=== PATIENT | female | born 1965 | race Caucasian/White ===

== ENCOUNTER 2021-07-25 08:50 | Emergency (ER) | payer OTHER, SELFPAY ==
--- NOTE | ~2021-07-25 | XR_ITS ---
EXAMINATION: XR chest 2V DATE: 07/25/2021 09:59 INDICATION: Left upper chest and arm pain. Shortness of breath. TECHNIQUE: PA and lateral views of the chest were obtained. COMPARISON: None FINDINGS: The lungs are clear with no focal airspace opacities, pulmonary edema, pleural effusion or pneumothor ax. The cardiomediastinal silhouette is normal with small left paracardial fat pad. Visualized bones and soft tissues are unremarkable. IMPRESSION: 1. No acute cardiopulmonary disease. Reviewed, dictated and finalized at location A.
[2021-07-25 09:03] VITALS: BP 152/83; PULSE 64; RESP 18; TEMP 36.9; O2SAT 100
--- NOTE | 2021-07-25 09:17 | ED.EXTPRO ---
HPI - Extremity Problem General Chief complaint: Extremity Problem,Nontraumatic Stated complaint: left arm pain Time Seen by Provider: 07/25/21 09:05 Source: patient Mode of arrival: ambulatory Limitations: no limitations History of Present Illness HPI Narrative: Patient is a 56-year-old female who presents the ED with report of L upper arm and L shoulder/L upper back pain. Patient reports the pain began suddenly around 8 pm last night. She states she has had pain like this before which was attributed to stress. She states the pain is in her left upper back and travels down her left arm to approximately her elbow. She states when she lays flat the pain is worse and she has trouble breathing. No other shortness of breath otherwise or with exertion. No chest pain, nausea, vomiting, abdominal pain, fever, chills. Patient tried taking Tylenol last night with no relief. No trauma or injury. Related Data Home Medications Medication Instructions Recorded Confirmed omeprazole 40 mg PO DAILY 07/25/21 07/25/21 Allergies Allergy/AdvReac Type Severity Reaction Status Date / Time No Known Allergies Allergy Unverified 07/25/21 09:14 Review of Systems Review of Systems: CONSTITUTIONAL: Denies fever, chills. CARDIOVASCULAR: Denies chest pain. RESPIRATORY: Denies cough or dyspnea. GASTROINTESTINAL: Denies abdominal pain, nausea, vomiting, or diarrhea. SKIN: Denies rash or itching. MUSCULOSKELETAL: Reports pain to L upper arm/shoulder/upper back. NEUROLOGIC: Denies headache, numbness, or weakness. All systems reviewed & are unremarkable except as noted in HPI and below PMFSH Past Medical History Medical History (Updated 07/25/21 @ 12:32 by Daria Hicks PA-C) GERD (gastroesophageal reflux disease) Surgical History Surgical History (Updated 07/25/21 @ 09:27 by Daria Hicks PA-C) History of partial colectomy Social History Social History (Updated 07/25/21 @ 09:27 by Daria Hicks PA-C) Smoking status: Never smoker Exam Narrative: GENERAL: Tearful, well-nourished, non-toxic, in mild acute distress. HEAD: Normocephalic, atraumatic. NECK: Supple. No adenopathy, no masses. No midline spinal tenderness. RESPIRATORY: Airway patent, respirations nonlabored. Clear to auscultation bilaterally, no rales, rhonchi, wheezing. CARDIOVASCULAR: Regular rate and rhythm without murmurs, rubs, or gallops. Radial pulses 2+ and equal bilaterally. ABDOMINAL: Soft, nontender, nondistended, no hepatosplenomegaly. Normoactive BS. MUSCULOSKELETAL: Moves all extremities. Strength/ROM intact without gross deformities. TTP of L deltoid region with area of knotted muscle tension. No TTP of L upper arm. No chest wall tenderness to palpation. No pain with ROM of LUE. SKIN: Warm, dry, normal color. No rashes. NEURO: A&O X3. Speech clear. Cranial nerves II-XII grossly intact. Steady gait. No ataxic movements. PSYCHIATRIC: Appropriate mood and affect. Normal interaction. Course Vital Signs Vital signs: Vital Signs Temperature 98.5 F 07/25/21 09:03 Pulse Rate 64 07/25/21 09:03 Respiratory Rate 18 07/25/21 09:03 Blood Pressure 152/83 H 07/25/21 09:03 Pulse Oximetry 100 07/25/21 09:03 Temperature 98.5 F 07/25/21 09:03 Pulse Rate 53 L 07/25/21 12:48 Respiratory Rate 18 07/25/21 12:48 Blood Pressure 140/78 07/25/21 12:48 Pulse Oximetry 100 07/25/21 12:48 MDM - Extremity (Nontraumatic) MDM Narrative Medical decision making narrative: Patient presented to ED with left upper arm/shoulder pain. No injury or trauma to the area. Pain began suddenly last night. Initially had concern for cardiac etiology, however patient with minimal cardiac risk factors. No HTN, HLD, DM, smoking, obesity. Laboratory evaluation fairly unremarkable. No leukocytosis or anemia. No electrolyte abnormality. Good kidney function. Troponin negative X 2. EKG without acute changes. D-dimer negative. Chest x-ray negative. Patient's pa
--- NOTE | 2021-07-25 09:23 | ECG_ITS ---
Measurements Intervals [place] Rate: 60 P: 24 NM: 131 QRS: 24 QRSD: 95 T: 51 QT: 365 QTc: 365 Interpretive Statements SINUS RHYTHM NONSPECIFIC T-WAVE ABNORMALITY BORDERLINE ECG NO PREVIOUS ECG AVAILABLE FOR COMPARISON Electronically Signed On 07-25-2021 11:34:37 CDT by José Martin M.D.
[2021-07-25 09:40] LABS: Basophils Percent Auto 0.6 % (0.2-1.2); Eosinophils Absolute Auto 0.2 K/mm3 (0-0.3); Eosinophils Percent Auto 3.8 % (0-4.4); Hematocrit 40.3 % (37.0-47.0); Hemoglobin 13.8 g/dL (12.0-15.0); Immature Granulocyte Absolute 0.02 K/mm3 (0.00-0.031); Immature Granulocyte Percent A 0.4 % (0-0.5); Lymphocytes Absolute Auto 1.96 K/mm3 (0.9-3.2); Lymphocytes Percent Auto 37.2 % (18.3-44.2); Mean Corpuscular HGB Conc 34.2 g/dl (32-36); Mean Corpuscular Hemoglobin 31.2 pg (26-34); Mean Platelet Volume 9.8 fl (7.4-10.4); Monocytes Absolute Auto 0.6 K/mm3 (0.1-0.6); Monocytes Percent Auto 11.2 % (2.6-8.5); Neutrophils Absolute Auto 2.5 K/mm3 (1.3-6.7); Neutrophils Percent Auto 46.8 % (45.5-73.1); Platelet Count Result 263 k/mm3 (150-375); Red Blood Count 4.43 M/mm3 (4.2-5.4); Red Cell Distribution Width 12.3 % (11.5-14.5); White Blood Count 5.3 K/mm3 (4.5-10.0)
[2021-07-25 09:52] LABS: Alanine Aminotransferase 28 U/L (4-35); Albumin Level 4.8 g/dL (3.5-5.1); Alkaline Phosphatase 107 U/L (38-126); Anion Gap 7 mmol/L (8-16); Aspartate Amino Transferase 31 U/L (14-36); Bilirubin,Total 0.3 mg/dL (0.2-1.3); Blood Urea Nitrogen 14 mg/dL (7-17); Carbon Dioxide 28 mmol/L (22-30); Chloride 104 mmol/L (98-107); Estimated CRCL calculation 75 ml/min; Estimated Glomerular Filt Rate > 60; Glucose 108 mg/dL (65-110); Sodium 139 mmol/L (137-145)
[2021-07-25 10:02] LABS: Troponin I < 0.012 ng/mL (0.000-0.034)
[2021-07-25] MEDS: KETOROLAC 30 MG/ML VIAL (*BKC) IV PUSH (10:20)
[2021-07-25 11:35] LABS: D Dimer 0.37 ug/mL (<0.48)
[2021-07-25 12:48] VITALS: BP 140/78; PULSE 53; RESP 18; O2SAT 100
[2021-07-25 12:51] LABS: Troponin I < 0.012 ng/mL (0.000-0.034)
== END 2021-07-25 13:02 | disposition home or self-care (01) ==
PROVIDERS: Physician Assistant; Emergency Provider Emergency Medicine
DX: M62.830 Muscle spasm of back (principal); K21.9 Gastro-esophageal reflux disease without esophagitis; Z90.49 Acquired absence of other specified parts of digestive tract; R94.31 Abnormal electrocardiogram [ECG] [EKG]
CPT/HCPCS: 36415; 71046; 80053; 84484; 85025; 85380; 93005; 96365; 96375; 99284; J0131; J1885

== ENCOUNTER 2022-05-19 09:26 | Emergency (ER) | payer OTHER, SELFPAY ==
[2022-05-19 09:57] VITALS: BP 145/84; PULSE 71; RESP 16; TEMP 36.8; O2SAT 98
--- NOTE | 2022-05-19 09:59 | ED.URI ---
HPI - URI/Sore Throat General Chief Complaint: Upper Respiratory Infection Stated Complaint: cough, sinus congestion Time Seen by Provider: 05/19/22 09:59 Source: patient and RN notes reviewed Mode of arrival: ambulatory Limitations: no limitations History of Present Illness HPI Narrative: 57 female presented for complaint of sinus pressure and head congestion for about 10 days. Endorses of the past few days her cough has worsened into it ?barking cough.? Denies shortness of breath, wheezing, nausea vomiting, diarrhea, fevers or chills. She is taking Zyrtec daily, Sudafed, and Tylenol for symptoms. Denies known sick contacts. MD elicited complaint: cough Related Data Home Medications Medication Instructions Recorded Confirmed omeprazole 40 mg capsule,delayed 40 mg PO DAILY 07/25/21 05/19/22 release Allergies Allergy/AdvReac Type Severity Reaction Status Date / Time No Known Allergies Allergy Unverified 05/19/22 09:54 Review of Systems Review of Systems: CONSTITUTIONAL: Denies malaise, chills, sweats, fever EYES: Denies visual changes, redness, or discharge ENT: Reports rhinorrhea, congestion, sinus pain, denies otalgia, sore throat CARDIOVASCULAR: Denies chest pain, palpitations, edema RESPIRATORY: Reports cough, post nasal drainage. Denies dyspnea GASTROINTESTINAL: Denies abdominal pain, nausea, vomiting, diarrhea SKIN: Denies rash or itching PMFSH Past Medical History Medical History GERD (gastroesophageal reflux disease) Surgical History Surgical History History of partial colectomy Social History Social History Smoking status: Never smoker Exam Narrative: GENERAL: Mildly Ill-appearing, nontoxic EYES: PERRLA, conjunctivae clear ENT: Mucous membranes moist. TM pearly borja with dull light reflex bilaterally; no tragal tenderness. Oropharynx erythematous without lesions or exudate NECK: Supple. No lymphadenopathy CHEST: Clear to auscultation, breath sounds equal. Frequent barking nonproductive cough. No wheezing, rhonchi, rales, or stridor. No respiratory distress, speaks in full sentences. HEART: Regular rate and rhythm. No murmur heard. SKIN: Warm, dry, no rash. NEURO: Alert and oriented x3. PSYCH: Normal mood and affect Course Course Emergency Course: Patient is aware of diagnosis, understands and agrees to treatment plan. Anticipatory guidance given. Patient agrees to follow-up as directed and is aware of reasons to seek care at the emergency department. Portions of this record may have been created with voice recognition software Level of Care: Express Care Visit Vital Signs Vital signs: Vital Signs Temperature 98.2 F 05/19/22 09:57 Pulse Rate 71 05/19/22 09:57 Respiratory Rate 16 05/19/22 09:57 Blood Pressure 145/84 H 05/19/22 09:57 Pulse Oximetry 98 05/19/22 09:57 Temperature 98.2 F 05/19/22 09:57 Pulse Rate 71 05/19/22 09:57 Respiratory Rate 16 05/19/22 09:57 Blood Pressure 145/84 H 05/19/22 09:57 Pulse Oximetry 98 05/19/22 09:57 reviewed MDM - URI/Sore Throat MDM Narrative Medical decision making narrative: Advised supportive measures and signs/symptoms to go to the ER. Pt is appropriate for outpt treatment and f/u. Differential Diagnosis Differential diagnosis: Likely upper respiratory infection, sinusitis and viral infection Discharge Plan Discharge Clinical Impression: Upper respiratory infection Patient Disposition: Home, Self-Care Condition: Stable Instructions: Antibiotic Form, Upper Respiratory Infection (ED) Additional Instructions: Take medication as directed Recommend Flonase spray and Zyrtec (or Claritin/Ashley) over the counter Cough syrup may cause drowsiness; avoid driving or take it at night time. Tylenol 1000mg every 8 ho
== END 2022-05-19 10:13 | disposition home or self-care (01) ==
PROVIDERS: Emergency Provider Nurse Practitioner Family
DX: J06.9 Acute upper respiratory infection, unspecified (principal); K21.9 Gastro-esophageal reflux disease without esophagitis; Z90.49 Acquired absence of other specified parts of digestive tract
CPT/HCPCS: 99213; G0463

== ENCOUNTER 2022-07-20 14:14 | Outpatient (CLI) | payer OTHER, SELFPAY ==
[2022-07-20 17:55] LABS: Hemoglobin A1C 5.5 % (<5.7)
== END 2022-07-20 14:15 | disposition home or self-care (01) ==
LOC: ANHLAB 14:15
PROVIDERS: PCP Family Medicine; Visit Provider Nurse Practitioner Family
DX: R73.09 Other abnormal glucose (principal)
CPT/HCPCS: 36415; 83036

== ENCOUNTER 2022-08-10 09:21 | Outpatient (NON) | payer OTHER, SELFPAY | END 2022-08-10 09:22 | disposition home or self-care (01) | LOC: ANHLAB 08-11 09:23 | PROVIDERS: PCP Family Medicine; Visit Provider Internal Medicine Gastroenterology | DX: K21.9 Gastro-esophageal reflux disease without esophagitis (principal); Z90.49 Acquired absence of other specified parts of digestive tract; K63.89 Other specified diseases of intestine | CPT/HCPCS: 88305 ==

== ENCOUNTER 2022-08-10 11:52 | Day surgery (SDC) | payer OTHER, SELFPAY ==
[2022-07-21 09:49] VITALS: BMI 31.8
[2022-07-26 09:29] VITALS: BMI 32.2
--- NOTE | 2022-08-09 13:24 | PM.HPGS ---
History of Present Illness History of Present Illness Consent: Risks, benefits, and alternatives have been discussed and questions answered. Patient agrees to proceed with procedure. Chief complaint: Gerd and Aquired Absence of other specified parts Narrative: Violetta Gupta is a 57 year old female referred for investigation of chronic reflux symptoms as well as nausea and intermittent vomiting. She has been on omeprazole for several years which helps her with daytime reflux. She does however still get episodes of regurgitating at night. She denies dysphagia. She has never had EGD in the past. She is also due for colon cancer screening . Her last colonoscopy was at least 5 years ago. When she had a resection for intestinal obstruction, the etiology was never determined, as she had not had prior surgery to cause adhesions. Review of Systems Review of Systems: All systems reviewed & are unremarkable except as noted in HPI and below PMFSH Past Medical History Medical History BMI 31.0-31.9,adult GERD (gastroesophageal reflux disease) Surgical History Surgical History History of partial colectomy Family History Family History Father Heart disease Diabetes mellitus Mother Diabetes mellitus Sibling Heart disease Social History Social History Smoking status: Never smoker Second hand tobacco smoke exposure: Yes Alcohol intake: current Substance use: never Substance use type: does not use Lack of Transportation: No Lack of Food: Never True Current Housing: I Have Housing Concerned About Future Housing: No Difficulty Paying Gas/Electric Bills: No Difficulty Paying for Meds: No Currently Unemployed: No Education: Trade/Vocational Certificate Difficulty w/ Childcare or Family Care: No Living arrangements: with family Occupation/Education: occupation 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 Gender identity (if verbalized by the patient): Female Spiritual care concerns: No Meds Home Medications and Allergies Home Medications Medication Instructions Recorded Confirmed Type omeprazole 40 mg capsule,delayed 40 mg PO DAILY 07/25/21 08/10/22 History release cetirizine 10 mg capsule (Zyrtec) 10 mg PO DAILY PRN Allergic 07/18/22 08/10/22 History Symptoms Allergies Allergy/AdvReac Type Severity Reaction Status Date / Time No Known Allergies Allergy Verified 08/10/22 12:28 Exam Const: General: alert Orientation/consciousness: patient oriented x3 Resp: Auscultation: clear to auscultation bilaterally Cardio: Rhythm: regular rhythm GI: GI Palp: Yes Soft to palpation and No Tenderness to palpation present (GI) Neuro: General: patient oriented x3 Assessment and Plan Assessment and plan (1) GERD (gastroesophageal reflux disease): Code(s): K21.9 - Gastro-esophageal reflux disease without esophagitis Status: Acute Assessment and Plan: EGD with possible biopsy or dilatation or cautery. (2) Screen for colon cancer: Code(s): Z12.11 - Encounter for screening for malignant neoplasm of colon Status: Acute Assessment and Plan: Colonoscopy with possible biopsy or polypectomy or cautery or injection of substances.
--- NOTE | 2022-08-10 11:52 | P.PNAN_ITS ---
Anes - Initial Pre Proc Eval Procedure: Operation Date: 08/10/22 13:30 Proposed Procedures p Esophagogastroduodenoscopy - Micky Oneil MD s Diagnostic Colonoscopy - Micky Oneil MD Date/Time: 08/10/22 11:52 Surgeon: Micky Oneil MD Pre Op Diagnosis: Gerd and Aquired Absence of other specified parts Patient Data Age: 57 Gender: F Height: 1.68 m Weight: 90.5 kg Allergies Allergy/AdvReac Type Severity Reaction Status Date / Time No Known Allergies Allergy Verified 08/10/22 12:28 Home Medications Medication Instructions Recorded Confirmed Type omeprazole 40 mg capsule,delayed 40 mg PO DAILY 07/25/21 08/10/22 History release cetirizine 10 mg capsule (Zyrtec) 10 mg PO DAILY PRN Allergic 07/18/22 08/10/22 History Symptoms Patient hx anesthesia problems: none Family hx anesthesia problems: none Results Review: All pre-operative results and documents have been reviewed as part of the pre- operative evaluation. [facility], LAT[facility] Past Medical History Medical History BMI 31.0-31.9,adult GERD (gastroesophageal reflux disease) Surgical History Surgical History History of partial colectomy Family History Family History Father Heart disease Diabetes mellitus Mother Diabetes mellitus Sibling Heart disease Social History Social History Smoking status: Never smoker Second hand tobacco smoke exposure: Yes Alcohol intake: current Substance use: never Substance use type: does not use Lack of Transportation: No Lack of Food: Never True Current Housing: I Have Housing Concerned About Future Housing: No Difficulty Paying Gas/Electric Bills: No Difficulty Paying for Meds: No Currently Unemployed: No Education: Trade/Vocational Certificate Difficulty w/ Childcare or Family Care: No Living arrangements: with family Occupation/Education: occupation 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 Informed Consent: The patient's anesthetic plan and its attendant risks and benefits were discussed with the patient/family/POA. Questions were solicited and answers provided to the satisfaction of the patient/family/POA.
[2022-08-10 12:25] VITALS: BP 118/80; PULSE 66; RESP 20; TEMP 37.4; O2SAT 96
[2022-08-10] MEDS: LACTATED RINGERS 1,000 ML 150 ML IV CONT (12:33)
[2022-08-10 13:42] VITALS: BP 121/74; PULSE 74; RESP 16; O2SAT 100
[2022-08-10 13:52] VITALS: BP 110/75; PULSE 64; RESP 16; O2SAT 97
[2022-08-10 14:02] VITALS: BP 115/86; PULSE 60; RESP 16; O2SAT 99
--- NOTE | 2022-08-10 14:17 | SUR.PHASEII ---
PT AWAKE AND ALERT. DENIES PAIN OR NAUSEA. EATING AND DRINKING. TALKATIVE WITH MOTHER.
--- NOTE | 2022-08-22 08:33 | WPDANESPN ---
Anes - Prog Note Post-Op Date/Time: 08/22/22 08:33 Cardiovascular status: normal Respiratory status: normal Airway patency: baseline Mental status: baseline Post-Op hydration status: normal Vital Signs: Last Vital Signs Temp 37.4 C 08/10/22 12:25 Pulse 60 08/10/22 14:02 Resp 16 08/10/22 14:02 BP 115/86 08/10/22 14:02 Pulse Ox 99 08/10/22 14:02 O2 Del Method Room Air 08/10/22 14:02 Pain Score (VAS): 0 Post-procedural complaints: none Patient Feedback: Patient satisfied with anesthetic care.
== END 2022-08-10 14:25 | disposition home or self-care (01) ==
PROVIDERS: PCP Family Medicine; Visit Provider Internal Medicine Gastroenterology
PROC: 0DJ08ZZ Inspection of Upper Intestinal Tract, Via Natural or Artificial Opening Endoscopic (ICD-10-PCS; CPT 43235; principal; 2022-08-10 13:30)
PROC: 0DJD8ZZ Inspection of Lower Intestinal Tract, Via Natural or Artificial Opening Endoscopic (ICD-10-PCS; CPT 45378; 2022-08-10 13:30)
DX: K21.9 Gastro-esophageal reflux disease without esophagitis (principal)
CPT/HCPCS: 45380; 43239

== ENCOUNTER 2022-09-28 13:33 | Outpatient (CLI) | payer OTHER, SELFPAY | END 2022-09-28 13:34 | disposition home or self-care (01) | PROVIDERS: PCP Family Medicine; Visit Provider Nurse Practitioner Family | DX: M79.672 Pain in left foot (principal) | CPT/HCPCS: 73630 ==

== ENCOUNTER 2023-06-15 07:57 | Outpatient (CLI) | payer OTHER, SELFPAY ==
--- NOTE | ~2023-06-15 | XR_ITS ---
EXAMINATION: XR UGIAC w barium swallow DATE: 06/15/2023 09:05 INDICATION: Gastroesophageal reflux disease without esophagitis TECHNIQUE: The patient drank thick barium, gas-producing crystals, and thin barium. Fluoroscopic spot radiographs of the hypopharynx, esophagus, stomach and proximal small bowel were obtained. Fluorosco py exposure time was 2.2 minutes. A total of 1393 fluoroscopic images were recorded. Total DAP was 14 .025 mGycm^2. COMPARISON: None. FINDINGS: The pharynx is symmetric and without evidence of mass lesion or mucosal irregularity. The esophagus i s normal without mass or stricture. Esophageal motility is normal. There is no hiatal hernia. There w as no gastroesophageal reflux with provocative maneuvers. The stomach and proximal small bowel are no rmal. IMPRESSION: 1. Normal esophagram and upper GI study. Reviewed, dictated and finalized at location A. HIC ARTS TECHNICIAN
== END 2023-06-15 07:58 | disposition home or self-care (01) ==
PROVIDERS: PCP Family Medicine; Visit Provider Surgery
DX: K21.9 Gastro-esophageal reflux disease without esophagitis (principal)
CPT/HCPCS: 74246

== ENCOUNTER 2023-11-02 08:34 | Outpatient (CLI) | payer OTHER, SELFPAY ==
--- NOTE | ~2023-11-02 | XR_ITS ---
EXAMINATION: XR chest 2V 11/02/2023 09:17 INDICATION: Diaphragmatic hernia PROCEDURE: 2 view chest COMPARISON: 07/25/2021 FINDINGS: The lungs are clear. The cardiomediastinal silhouette is within normal limits. There are no pleural effusions. There is no pneumothorax suspected. IMPRESSION: 1: NO ACUTE CARDIOPULMONARY DISEASE. Reviewed, dictated and finalized at location B.
--- NOTE | 2023-11-02 08:30 | ECG_ITS ---
Test Date: 2023-11-02 09:03:46 Measurements Intervals [place] Rate: 62 P: 17 OK: 141 QRS: 25 QRSD: 101 T: 33 QT: 375 QTc: 383 Interpretive Statements SINUS RHYTHM DELAYED PRECORDIAL R/S TRANSITION CONSIDER INFERIOR INFARCT, AGE INDETERMINATE NONSPECIFIC ST-T WAVE ABNORMALITY- ANTEROLAT/HIGH LAT LEADS BASELINE ARTIFACT- I, II, III, AVR, AVL, AVF, V1 ABNORMAL ECG No previous ECG available for comparison Electronically Signed On 11-02-2023 09:16:06 CDT by Erlin Chung D.O.
[2023-11-02 09:16] LABS: Basophils Percent Auto 0.7 % (0.2-1.2); Eosinophils Absolute Auto 0.1 K/mm3 (0-0.3); Eosinophils Percent Auto 1.1 % (0-4.4); Hematocrit 40.7 % (37.0-47.0); Hemoglobin 13.7 g/dL (12.0-15.0); Immature Granulocyte Absolute 0.01 K/mm3 (0.00-0.031); Immature Granulocyte Percent A 0.2 % (0-0.5); Lymphocytes Absolute Auto 1.91 K/mm3 (0.9-3.2); Lymphocytes Percent Auto 35.4 % (18.3-44.2); Mean Corpuscular HGB Conc 33.7 g/dl (32-36); Mean Corpuscular Hemoglobin 31.6 pg (26-34); Mean Corpuscular Volume 93.8 fl (80-100); Monocytes Absolute Auto 0.4 K/mm3 (0.1-0.6); Monocytes Percent Auto 8.2 % (2.6-8.5); Neutrophils Absolute Auto 2.9 K/mm3 (1.3-6.7); Neutrophils Percent Auto 54.4 % (45.5-73.1); Platelet Count Result 233 k/mm3 (150-375); Red Blood Count 4.34 M/mm3 (4.2-5.4); Red Cell Distribution Width 12.3 % (11.5-14.5); White Blood Count 5.4 K/mm3 (4.5-10.0)
[2023-11-02 09:25] LABS: Anion Gap 11 mmol/L (4-12); Blood Urea Nitrogen 15 mg/dL (7-17); Calcium 9.5 mg/dL (8.4-10.2); Carbon Dioxide 27 mmol/L (22-30); Chloride 102 mmol/L (98-107); Estimated Glomerular Filt Rate > 60; Glucose 114 mg/dL (65-110); Potassium 4.2 mmol/L (3.4-5.0); Sodium 140 mmol/L (137-145)
== END 2023-11-02 08:35 | disposition home or self-care (01) ==
PROVIDERS: PCP Family Medicine; Visit Provider Surgery
DX: Z01.818 Encounter for other preprocedural examination (principal); K44.9 Diaphragmatic hernia without obstruction or gangrene; R94.31 Abnormal electrocardiogram [ECG] [EKG]
CPT/HCPCS: 36415; 71046; 80048; 85025; 86850; 86900; 86901; 93005

== ENCOUNTER 2023-11-08 11:07 | Observation (INO) | payer OTHER, SELFPAY ==
[2023-11-01 08:49] VITALS: BMI 30.7
--- NOTE | 2023-11-01 08:56 | PC.NURSE ---
Report to the Outpatient Waiting Room, entrance under the green pavilion located off [facility], at time _0700_ on date _[id number]_. Planned Procedure Time: _0900_. Time changes happen often and if your time is changed the preop area will call you the afternoon before. - You and your visitor will be asked to self-screen and do not enter if you have any COVID symptoms. - A mask is optional within the hospital at this time. Patients may have clear liquids (water, carbonated beverages, clear teas, apple juice) until 3 hours prior to surgery with a maximum of 20 ounces. - No food from midnight until time of surgery Take the following medications with a SIP of water the morning of surgery: ____None DO NOT STOP ANY OF YOUR OTHER PRESCRIPTION MEDICATIONS PRIOR TO SURGERY ?EXCEPT THE FOLLOWING Medications to discontinue per physician Vitamin D3 Date to take last [id number] Please no make-up, nail mauritanian, hairspray, perfume, deodorant, or body powder the day of surgery. No jewelry (including any body piercings) or valuables the day of surgery, leave them at home. Please take a shower or bath the night before, or the morning of, surgery with an antibacterial soap. Wear comfortable, loose fitting clothing. . - Jewelry must be removed prior to entering the operating room. Rings and piercings that are not removed may be cut off. - The hospital will not accept responsibility for valuables. - Please leave all valuables, including medications, at home the day of surgery. If you are going home after surgery, a licensed regional company truck driver must drive you home. - NO public transportation without another adult if you receive anesthesia. - We recommend that an adult stay with you for 24 hours following discharge. - We also recommend that you do not drive, make important decision, drink alcoholic beverages, or take any drugs that were not prescribed by your health care provider for at least 24 hours after your discharge time. Follow any additional instructions given to you from your surgeon. If you or anyone in your household have experienced Covid symptoms in the past week, please notify your surgeon or the nurse liaison at the phone number below for possible testing. Telephone instructions given to _Tracy__and asked if any additional questions and then verbalized understanding. Patient advised to call surgeon office or pre surgery nurse liaison [phone] if any additional questions.
[2023-11-07] VITALS (13 sets, daily range): BP systolic 123–170; BP diastolic 69–91; PULSE 60–75; RESP 14–19; TEMP 35.7–36.6; O2SAT 92–100; BMI 31.8
--- NOTE | 2023-11-07 07:13 | WPDHPUPDATE1 ---
History and Physical Update Update Date/Time: 11/07/23 07:13 History and Physical has been reviewed, including an updated exam of the patient. There are NO changes in the patient's condition. Risks, benefits, and alternatives have been discussed and questions answered. Patient agrees to proceed with procedure.
[2023-11-07] MEDS: LACTATED RINGERS 1,000 ML 30 ML IV CONT ×2 (07:45→11:46)
[2023-11-07] MEDS: KETOROLAC 15 MG/ML VIAL (*BKC) IV PUSH (08:00)
[2023-11-07] MEDS: ACETAMINOPHEN 500 MG TABLET 1000 MG PO (08:00)
--- NOTE | 2023-11-07 08:39 | WPDANESEPP ---
Anes - Eval Pre Procedure Procedure: Operation Date: 11/07/23 09:00 Proposed Procedures p Hiatal Hernia Repair with Laparoscopic Ivis Fundoplication - Micky Barlow MD Date/Time: 11/07/23 08:39 Pre Op Diagnosis: gerd Patient Data Age: 58 Gender: F Height: 1.68 m Weight: 87.2 kg Last Vital Signs Temp 36.3 C L 11/07/23 08:24 Pulse 60 11/07/23 08:24 Resp 18 11/07/23 08:24 BP 127/84 11/07/23 08:24 Pulse Ox 99 11/07/23 08:24 O2 Del Method Room Air 11/07/23 08:24 Allergies Allergy/AdvReac Type Severity Reaction Status Date / Time No Known Allergies Allergy Verified 11/01/23 08:47 Home Medications Medication Instructions Recorded Confirmed Type cetirizine 10 mg capsule (Zyrtec) 10 mg PO DAILY PRN Allergic 07/18/22 11/07/23 History Symptoms cholecalciferol (vitamin D3) 10 10 mcg PO DAILY 06/04/23 11/07/23 History mcg (400 unit) capsule omeprazole 20 mg capsule,delayed 20 mg PO BID 11/01/23 11/07/23 History release Patient hx anesthesia problems: none Family hx anesthesia problems: none Results Review: All pre-operative results and documents have been reviewed as part of the pre-operative evaluation. COUNTS INCLUDE 234 BEDS AT THE [facility] Past Medical History Medical History BMI 28.0-28.9,adult BMI 31.0-31.9,adult GERD (gastroesophageal reflux disease) Surgical History Surgical History History of partial colectomy Family History Family History Father Heart disease Diabetes mellitus Mother Diabetes mellitus Sibling Heart disease Social History Social History Smoking status: Never smoker Second hand tobacco smoke exposure: Yes Alcohol intake: current Substance use: never Substance use type: does not use Lack of Transportation: No Lack of Food: Never True Current Housing: I Have Housing Concerned About Future Housing: No Difficulty Paying Gas/Electric Bills: No Difficulty Paying for Meds: No Currently Unemployed: No Education: Trade/Vocational Certificate Difficulty w/ Childcare or Family Care: No Living arrangements: with family Occupation/Education: occupation 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
--- NOTE | 2023-11-07 08:44 | P.PNAN_ITS ---
Anes - Eval Final PreProcedure Day of Procedure 11/07/23 08:44 Patient weight: obese Heart: regular rate and rhythm Lungs: clear to auscultation Airway: Mallampati scale class II Neurological: alert and oriented Last oral intake: >/= 8 hours ASA classification: III Emergent: no Anesthetic plan: proceed Anesthesia type and monitoring: general ETT and standard monitoring Results Review: All pre-operative results and documents have been reviewed as part of the pre- operative evaluation. Informed Consent: The patient's anesthetic plan and its attendant risks and benefits were discussed with the patient/family/POA. Questions were solicited and answers provided to the satisfaction of the patient/family/POA.
[2023-11-07] MEDS: ceFAZolin 2 GM/D5W 50 ML 2 GM/50 ML BAG IVPB (08:47)
[2023-11-07] MEDS: BUPIVACAINE/EPINEPHRINE 0.5% 50 ML VIAL 30 ML INFILTRATE (09:12)
--- NOTE | 2023-11-07 11:54 | W.PM.PROC2 ---
Procedure Note - Detailed Date of Procedure 11/07/23 Pre-op Diagnosis Hiatal hernia with gastroesophageal reflux Post-op Diagnosis Same Procedure Performed Laparoscopic adhesiolysis, laparoscopic hiatal hernia repair with Ivis fundoplication Surgeon Micky Barlow MD Uranium Processing Supervisor Ledy Watkins [facility] Anesthesia General and Local Indications Patient is a 58-year-old woman who has had heartburn nausea and bloating for quite some time. She takes Nexium at least twice a day which only partially relieves her symptoms. She had an EGD earlier this year which showed a hiatal hernia and a Schatzki is ring but no esophagitis. Patient had a barium swallow upper GI which was read as normal. She had esophageal manometry which showed adequate esophageal peristalsis to undergo fundoplication. She had pH testing as well which was markedly abnormal with a DeMeester score of 54.6, very significant for multiple episodes of reflux. She is taken to surgery now for laparoscopic repair of hiatal hernia and Ivis fundoplication. Findings Patient's surgery was made much more difficult due to numerous anterior abdominal wall adhesions. She had had a previous colectomy, presumably a right colectomy, due to a small bowel obstruction. Apparently this did not involve cancer but the reason for the colon resection is not known to the patient. These adhesions were in exactly the area where we would place our Jose M and upper abdominal ports. For this reason, we had place 3 extra trocar sites to access the adhesions and take them down. Additionally, the stomach was quite stuck in the esophageal hiatus and freeing it to reduce the stomach was more difficult than is typically seen. Description of Procedure Patient was taken to surgery and induced into general anesthesia. Due to her upper abdominal scar, the initial trocar was then applied Medical optical 5 mm port in the left subcostal position. Intraperitoneal placement was confirmed with insufflation and placement of the laparoscopic opened. However, there were a significant number of anterior abdominal adhesions as described. A left lower abdominal 5 mm port was then placed under direct visualization. Putting the camera here, I was able to take down some of the adhesions by moving the camera and the LigaSure back and forth between these 2. However the majority of the adhesions were in the upper midline and not accessible. I then placed a 3rd port in the right lower abdomen, under direct visualization. This was also a 5 mm port. With the camera in the left lower abdomen and the LigaSure in the right, I was then able to take down these omental anterior abdominal wall adhesions. Using the LigaSure there was a little or no bleeding associated with this. She had a large falciform ligament and I did go ahead and take that down so that it was not in our way with the upper abdominal ports for hiatal hernia repair. From here, I placed a right-sided subcostal but closed epigastric incision. The Jose M self retaining retractor was introduced here. The lateral segment of the left lobe of the liver was elevated so that the area of the hiatus would be visible. The initial left subcostal trocar was too medial to use for the dissection. The trocar was removed and this incision was temporarily closed with 3-0 Vicryl suture. A 10 11 port was placed in the left subcostal position but more laterally. From there, a 5 mm port was placed above the umbilicus and pretty much in the midline. Two operating ports were placed farther cephalad and on either side of the midline. These last 2 ports were 10 11 ports as well. Patient was placed in reversed Trendelenburg. The hepato gastric ligament was found and was divided with the LigaSure. However there was still incarcerated lesser omentum that was stuck to the right alaina. There was no ability to get to the hernia sac without dividing some of the attachments to the right alaina. I went ahead and
[2023-11-07] MEDS: diphenhydrAMINE HCl INJ 50 MG/ML VIAL 12.5 MG IV PUSH (12:34)
[2023-11-07] MEDS: fentaNYL CITRATE INJ (*CRX) 100 MCG/2 ML VIAL 25 MCG IV PUSH (12:50)
--- NOTE | 2023-11-07 13:46 | PC.NURSE ---
This patient, Violetta Gupta, was admitted to [facility] Surg Room 303-01. Patient/family oriented to hospital policies and general routines including ID bracelet, bed and alarms, visiting hours, pain management, procedures, bathroom and other care routines, personal items, smoking policy, room service/diet, and visiting hours. Information on how to activate the Rapid Response Team has been discussed. Patient/Family are encouraged to report perceived risks to care and to ask questions if they do not understand what they are told or what they should do.
[2023-11-07] MEDS: MORPHINE SULFATE (*CRX) 4 MG/ML INJ 2 MG IV PUSH (14:15)
[2023-11-07] MEDS: LACTATED RINGERS 1,000 ML 100 ML IV CONT (14:15)
[2023-11-07] MEDS: MORPHINE SULFATE (*CRX) 2 MG/ML INJ 1 MG IV PUSH (17:03)
[2023-11-07] MEDS: oxyCODONE/ACETAMINOPHEN (*CRX) 10-325 MG TABLET 1 TAB PO (20:15)
[2023-11-07] MEDS: SENNA/DOCUSATE SODIUM TABLET 2 TAB PO (20:16)
[2023-11-07] MEDS: IBUPROFEN IV 800 MG/200 ML 800 MG/200 ML BAG 400 MG IVPB (22:52)
[2023-11-08] MEDS: oxyCODONE/ACETAMINOPHEN (*CRX) 10-325 MG TABLET 1 TAB PO ×4 (03:33→20:16)
[2023-11-08 04:55] VITALS: BP 168/83; PULSE 62; RESP 16; TEMP 36.1; O2SAT 97
[2023-11-08 06:37] LABS: Hematocrit 39.6 % (37.0-47.0); Hemoglobin 13.3 g/dL (12.0-15.0); Mean Corpuscular HGB Conc 33.6 g/dl (32-36); Mean Corpuscular Hemoglobin 31.5 pg (26-34); Mean Corpuscular Volume 93.8 fl (80-100); Mean Platelet Volume 9.8 fl (7.4-10.4); Platelet Count Result 240 k/mm3 (150-375); Red Blood Count 4.22 M/mm3 (4.2-5.4); Red Cell Distribution Width 12.4 % (11.5-14.5); White Blood Count 9.3 K/mm3 (4.5-10.0)
[2023-11-08 06:54] LABS: Anion Gap 8 mmol/L (4-12); Blood Urea Nitrogen 11 mg/dL (7-17); Calcium 9.4 mg/dL (8.4-10.2); Carbon Dioxide 31 mmol/L (22-30); Chloride 99 mmol/L (98-107); Estimated CRCL calculation 98 ml/min; Estimated Glomerular Filt Rate > 60; Glucose 109 mg/dL (65-110); Potassium 3.8 mmol/L (3.4-5.0); Sodium 138 mmol/L (137-145)
--- NOTE | 2023-11-08 08:11 | PM.PNGS ---
Progress Note: A&P Assessment and Plan (1) GERD (gastroesophageal reflux disease): Qualifiers: Esophagitis presence: esophagitis presence not specified Qualified Code(s): K21.9 - Gastro-esophageal reflux disease without esophagitis Code(s): K21.9 - Gastro-esophageal reflux disease without esophagitis Status: Chronic Assessment and Plan: Chest and upper abdominal pain not surprising with surgery being done yesterday. Surgery also included additional laparoscopic instruments being placed and the significant adhesiolysis from her previous colon surgery. Patient will stay in the hospital today. Advanced to full liquid diet. Increase ambulation. I do not think she is taking on of pain medication and advised that if the oral pain medication is not adequate after an hour, asks for the intravenous pain medication. Pending CBC but BMP looks good. Continue in-hospital care. (2) Hiatal hernia: Code(s): K44.9 - Diaphragmatic hernia without obstruction or gangrene Status: Chronic (3) History of partial colectomy: Code(s): Z90.49 - Acquired absence of other specified parts of digestive tract Status: Chronic Subjective Subjective Date/Time Seen: 11/08/23 08:11 Post Op day: 1 Patient reports: still having pain (Having a lot of lateral chest and upper abdominal pain. Also trouble swallowing.), no bowel movement and afebrile Exam Const: General: comfortable and no acute distress Orientation/consciousness: patient oriented x3 GI: Inspection: incision (Dry and healing well) GI Palp: Yes Soft to palpation, Yes Tenderness to palpation present (GI) (Upper abdomen mostly), No Guarding due to palpation present (GI) and No Rebound tenderness present Neuro: General: patient oriented x3 and no focal motor deficits Psych: Affect: normal affect Insight: Good insight present (Psych) Judgement: Good judgement present (Psych) Objective Data Vital Signs Vital Signs: Vital Signs - 24 hr 11/07/23 08:24 11/07/23 11:46 11/07/23 12:15 Temperature 36.3 C L 36.6 C Pulse Rate 60 74 71 Respiratory Rate 18 18 14 Blood Pressure 127/84 133/72 142/79 H Pulse Oximetry 99 99 99 Oxygen Delivery Room Air Simple Face Mask Room Air Oxygen Flow Rate 6 11/07/23 12:30 11/07/23 12:00 11/07/23 12:45 Temperature Pulse Rate 72 75 73 Respiratory Rate 14 14 16 Blood Pressure 162/86 H 123/69 152/91 H Pulse Oximetry 92 98 98 Oxygen Delivery Nasal Cannula Simple Face Mask Nasal Cannula Oxygen Flow Rate 2 6 2 11/07/23 13:00 11/07/23 13:30 11/07/23 13:45 Temperature 36.5 C 36.2 C L 36.2 C L Pulse Rate 74 69 65 Respiratory Rate 14 19 18 Blood Pressure 141/84 H 150/82 H 152/81 H Pulse Oximetry 98 97 97 Oxygen Delivery Nasal Cannula Oxygen Flow Rate 2 11/07/23 14:15 11/07/23 13:30 11/07/23 15:15 Temperature 35.8 C L 36.4 C Pulse Rate 71 72 Respiratory Rate 18 18 Blood Pressure 148/83 H 150/79 H Pulse Oximetry 99 100 96 Oxygen Delivery Nasal Cannula Oxygen Flow Rate 2 11/07/23 18:52 11/07/23 21:32 11/07/23 22:52 Temperature 35.7 C L 36.2 C L Pulse Rate 70 65 Respiratory Rate 16 14 Blood Pressure 170/77 H 149/79 H Pulse Oximetry 97 94 Oxygen Delivery Room Air Oxygen Flow Rate 11/08/23 04:55 11/08/23 07:57 Temperature 36.1 C L Pulse Rate 62 Respiratory Rate 16 Blood Pressure 168/83 H Pulse Oximetry 97 Oxygen Delivery Room Air Oxygen Flow Rate Intake/Output Intake/Output: Intake & Output 11/05/23 11/06/23 11/07/23 11/08/23 23:59 23:59 23:59 23:59 Intake Total 1100 0 Balance 1100 0 Meds/Results Medications: Active Medications Generic Name Dose Route Start Last Admin Trade Name Freq PRN Reason Stop Dose Admin Acetaminophen 500 mg 11/07/23 13:07 Acetaminophen 500 Mg Tablet PO Q6H PRN Pain Rated 1-3 Enoxaparin Sodium 40 mg 11/08/23 09:00 Enoxaparin 40 Mg/0.4 Ml Syringe SUB-Q DAILY [facility]
[2023-11-08] MEDS: polyethylene glycoL 3350 17 GM POWD.PACK PO (08:37)
[2023-11-08] MEDS: ENOXAPARIN 40 MG/0.4 ML SYRINGE SUB-Q (08:37)
[2023-11-08 10:50] VITALS: BP 139/81; PULSE 65; RESP 18; TEMP 36.6; O2SAT 97
--- NOTE | 2023-11-08 13:17 | WPDANESPN ---
Anes - Prog Note Post-Op Date/Time: 11/08/23 13:17 Vital Signs: Last Vital Signs Temp 36.6 C 11/08/23 10:50 Pulse 65 11/08/23 10:50 Resp 18 11/08/23 10:50 BP 139/81 11/08/23 10:50 Pulse Ox 97 11/08/23 10:50 O2 Del Method Room Air 11/08/23 07:57 O2 Flow Rate 2 11/07/23 13:30 Pain Score (VAS): 2 I/O: Intake & Output 11/07/23 11/08/23 11/08/23 23:59 07:59 15:59 Intake Total 200 0 240 Balance 200 0 240 Laboratory Tests 11/08/23 06:19 11/08/23 06:19 11/08/23 06:19 WBC 9.3 RBC 4.22 Hgb 13.3 Hct 39.6 MCV 93.8 MCH 31.5 MCHC 33.6 RDW 12.4 Plt Count 240 MPV 9.8 Sodium 138 Potassium 3.8 Chloride 99 Carbon Dioxide 31 H Anion Gap 8 BUN 11 Creatinine 0.60 L Estim Creat Clear Calc 98 Estimated GFR > 60 Glucose 109 Calcium 9.4 Patient Feedback: Patient satisfied with anesthetic care.
[2023-11-08 14:52] VITALS: BP 168/88; PULSE 68; RESP 16; TEMP 36.6; O2SAT 97
[2023-11-08] MEDS: IBUPROFEN IV 800 MG/200 ML 800 MG/200 ML BAG 400 MG IVPB (18:20)
[2023-11-08] MEDS: SENNA/DOCUSATE SODIUM TABLET 2 TAB PO (20:16)
[2023-11-08 21:57] VITALS: BP 134/69; PULSE 61; RESP 18; TEMP 35.9; O2SAT 93
[2023-11-09] MEDS: IBUPROFEN IV 800 MG/200 ML 800 MG/200 ML BAG 400 MG IVPB ×3 (01:15→15:11)
[2023-11-09 05:44] LABS: Hematocrit 41.2 % (37.0-47.0); Hemoglobin 13.5 g/dL (12.0-15.0); Mean Corpuscular HGB Conc 32.8 g/dl (32-36); Mean Corpuscular Volume 94.5 fl (80-100); Mean Platelet Volume 9.8 fl (7.4-10.4); Platelet Count Result 231 k/mm3 (150-375); Red Blood Count 4.36 M/mm3 (4.2-5.4); Red Cell Distribution Width 12.6 % (11.5-14.5); White Blood Count 6.8 K/mm3 (4.5-10.0)
[2023-11-09 05:51] VITALS: BP 123/61; PULSE 68; RESP 18; TEMP 35.8; O2SAT 94
[2023-11-09 05:56] LABS: Anion Gap 10 mmol/L (4-12); Blood Urea Nitrogen 12 mg/dL (7-17); Calcium 9.1 mg/dL (8.4-10.2); Carbon Dioxide 31 mmol/L (22-30); Chloride 98 mmol/L (98-107); Estimated CRCL calculation 85 ml/min; Estimated Glomerular Filt Rate > 60; Glucose 99 mg/dL (65-110); Potassium 3.6 mmol/L (3.4-5.0); Sodium 139 mmol/L (137-145)
[2023-11-09] MEDS: oxyCODONE/ACETAMINOPHEN (*CRX) 10-325 MG TABLET 1 TAB PO (05:59)
[2023-11-09] MEDS: polyethylene glycoL 3350 17 GM POWD.PACK PO (09:48)
[2023-11-09] MEDS: ENOXAPARIN 40 MG/0.4 ML SYRINGE SUB-Q (09:48)
[2023-11-09] MEDS: oxyCODONE/ACETAMINOPHEN (*CRX) 5-325 MG TABLET 1 TABLET PO (12:23)
[2023-11-09 14:00] VITALS: BP 138/87; PULSE 69; RESP 18; TEMP 36.3; O2SAT 95
--- NOTE | 2023-11-09 16:00 | PM.DS ---
DS: Admitting Diagnosis Discharge Date 11/09/2023 Admitting Diagnosis GERD Hiatal hernia History right colectomy DS: Discharge Diagnosis Discharge Diagnosis (1) GERD (gastroesophageal reflux disease): Qualifiers: Esophagitis presence: esophagitis presence not specified Qualified Code(s): K21.9 - Gastro-esophageal reflux disease without esophagitis Code(s): K21.9 - Gastro-esophageal reflux disease without esophagitis Status: Chronic Assessment and Plan: Laparoscopic hiatal hernia repair with Ivis fundoplication performed per Dr. Barlow 11/07/2023. (2) Hiatal hernia: Code(s): K44.9 - Diaphragmatic hernia without obstruction or gangrene Status: Chronic (3) History of colon resection: Code(s): Z90.49 - Acquired absence of other specified parts of digestive tract Status: Acute Assessment and Plan: Previous right colectomy performed for nonmalignant disease associated with small-bowel obstruction. Patient had quite a few adhesions from this that had to be taken down prior to her hiatal hernia repair and fundoplication. DS: Summary Hospital Course Hospital Course: Patient had symptoms of severe reflux disease with heartburn, nausea, some emesis. This was recalcitrant to proton pump inhibitors being taken twice a day. EGD showed a hiatal hernia. Esophageal manometry showed adequate esophageal peristalsis for fundoplication. Patient had pH testing which was markedly abnormal with a DeMeester score of over 50. She was taken to surgery on 11/07/2023 and underwent laparoscopic hiatal hernia repair with Ivis fundoplication. Following surgery she was started on liquids but was taking IV analgesics specifically IV ibuprofen for pain. On postop day 2., she was more comfortable but had taken some IV ibuprofen. She was ambulatory and tolerating low-fiber diet without difficulty. She was able to be discharged in good condition. Status at Discharge Functional status at discharge: independent ambulation Overall status at discharge: patient is progressing back to baseline Time Spent with Patient Time attestation: Total time spent providing and/or coordinating discharge services: Time spent: Less than 30 minutes DS: Data Data Completed and Pending Labs on day of discharge: Labs from last 24 hours 11/09/23 05:22 WBC 6.8 RBC 4.36 Hgb 13.5 Hct 41.2 MCV 94.5 MCH 31.0 MCHC 32.8 RDW 12.6 Plt Count 231 MPV 9.8 Sodium 139 Potassium 3.6 Chloride 98 Carbon Dioxide 31 H Anion Gap 10 BUN 12 Creatinine 0.70 Estim Creat Clear Calc 85 Estimated GFR > 60 Glucose 99 Calcium 9.1 Discharge Plan Discharge Attending physician on discharge: Micky Barlow Discharging Clinician: Micky Barlow Anticipated Discharge Date/Time: 11/09/23 16:08 Patient Disposition: Home, Self-Care Activity: may shower, no straining and as tolerated Diet: low fiber Wound Care Instructions: incision open to air Discharge Instructions: Okay to bathe or shower. Wash incisions with soap and water. Stairs are okay take them slowly. No lifting over 15-20 lb. Ambulate for 5-10 minutes 3 times a day. Can increase as energy levels improve. Take liquids or very soft foods, pureed foods are also okay. Eat very slowly taking small bites or small swallows. May drive a car in 3 days. Call for temp over 100.5, vomiting, severe chest or abdominal pain, other significant change in condition. Discontinue omeprazole. See Dr. Barlow in in office for previously scheduled postop appointment. Patient Instructions: Antibiotic Form Stand Alone Forms: General Discharge Information Follow-up/Referrals: Micky Barlow MD [Physician] - Keep Reg. Scheduled Appt. (If no appointment, call the office and make appointment.) Discharge Medications: New oxycodone-acetaminophen 5-325 mg tablet 0.5 - 1 tablet PO Q6H PRN (Reason: pain) Qty: 10 0RF sennosides
== END 2023-11-09 17:10 | disposition home or self-care (01) ==
LOC: ANHSURGERY 11:10 → ANH3MEDSUR 11:10
PROVIDERS: Admitting Provider Surgery; PCP Family Medicine; Visit Provider Surgery
PROC: 0DV44ZZ Restriction of Esophagogastric Junction, Percutaneous Endoscopic Approach (ICD-10-PCS; CPT 43281; principal; 2023-11-07 09:00)
DX: K44.9 Diaphragmatic hernia without obstruction or gangrene (principal); K21.9 Gastro-esophageal reflux disease without esophagitis; K66.0 Peritoneal adhesions (postprocedural) (postinfection); Z90.49 Acquired absence of other specified parts of digestive tract
CPT/HCPCS: 43280; 36415; 71046; 80048; 85025; 85027; 86850; 86900; 86901; 93005; A9270; G0378; J0690; J1100; J1170; J1200; J1650; J1741; J1885; J2250; J2270; J2405; J2704; J3010; J7120

== ENCOUNTER 2024-06-19 06:57 | Outpatient (CLI) | payer OTHER, SELFPAY ==
--- NOTE | ~2024-06-19 | XR_ITS ---
AP and lateral views of the left hip Clinical history: Pain Findings: No acute fracture or dislocation is seen. Osseous alignment is anatomic. Left hip joint is intact. Soft tissues are unremarkable. Impression: No significant abnormality is seen. Reviewed, dictated and finalized at location M. Impression: No significant abnormality is seen.
--- OUTSIDE RECORDS SUMMARY | 2024-06-19 07:00 | XMS_ITS | Clinical Summary ---
Author Organization [facility] Address [address] [place] [address] Care Team Providers Care Internet Network Specialist Name Role Phone Unknown, Provider Primary Care Provider Unavaila ble Source Comments [facility],non-[facility] Affiliates and Associated Physician Practices is amultiple site organization consisting of ambulatory clinics and hospital sitesin [place], [place], [place] and [place]. This disclosure is being madepursuant to the Care Everywhere program and may not contain all information available regarding this patient. Last updated 17.[employer] [facility] Allergies No known active allergies Medications * Be aware that medications may not be up to date on this document. Alwaysverify current medications with the patient. Medication Sig Dispensed Refills Start Date End Date Status cetirizine (ZyrTEC) 10 MG tablet Take 1 (one) tablet by mouth once daily Active esomeprazole (NexIUM) 40 MG capsule Take 1 (one) capsule by mouth once daily Active L-METHYLFOLATE CALCIUM PO Active omeprazole (PriLOSEC) 20 MG capsule Take 2 (two) capsules by mouth daily before breakfast Active Social History Tobacco Use Types Packs/Day Years Used Date Smoking Tobacco: Never Smokeless Tobacco: Never Tobacco Cessation:Counseling Given: Not Answered Alcohol Use Standard Drinks/Week Comments Not Currently 0 (1 standard drink = 0.6 oz pur e alcohol) rare Sex and Gender Information Value Date Recorded Sex Assigned at Not on file Gender Identity Not on file Sexual Orientation Not on file Last Filed Vital Signs Vital Sign Reading Time Taken Comments Blood Pressure - - Pulse - - Temperature - - Respiratory Rate - - Oxygen Saturation - - Inhaled Oxygen Concentration - - Weight 88.5 kg (195 lb) 09/13/2023 7:28 AM CDT Height 165.1 cm (5' 5 ) 09/13/2023 7:28 AM CDT Body Mass Index 32.45 09/13/2023 7:28 AM CDT Plan of Treatment Health Maintenance Due Date Last Done Comments COLOGUARD (AGES 45-75) - COL ON CA SCREENING 1965 COLON MONITORING 1965 COLONOSCOPY - COLON CA SCREENING 1965 CT COLONOGRAPHY - COLON CA SCREENING 1965 Colorectal Cancer Screening 1965 FIT - COLON CA SCREENING 1965 FLEX SIG - COLON CA SCREENING 1965 LIPID TESTING 1965 MAMMOGRAM 1965 PAP SMEAR 1965 HIV SCREENING 01/20/1980 HEPATITIS C SCREENING 01/15/1983 DTAP/TDAP/TD VACCINES (1 - Tdap) 01/20/1984 HEPATITIS B VACCINE (1 of 3 - 19+ 3-dose series) 01/20/1984 PNEUMOCOCCAL VACCINE 50+ (1 of 1 - PCV) 2015 ZOSTER VACCINE (1 of 2) 2015 COVID-19 VACCINE (1 - 2023-2 5 season) 2023 INFLUENZA VACCINE (#1) 2023 DEPRESSION SCREENING 04/09/2024 HIB VACCINE Aged Out No longer eligi ble based on patient's age to complete this topic HPV VACCINE Aged Out No longer eligi ble based on patient's age to complete this topic MENINGOCOCCAL (Group B) VACC INE SHARED DECISION-MAKING Aged Out No longer eligibl e based on patient's age to complete this topic MENINGOCOCCAL GROUPS A/C/Y/W VACCINE Aged Out No longer eligible b ased on patient's age to complete this topic PNEUMOCOCCAL VACCINE Aged Out No long er eligible based on patient's age to complete this topic Care Teams Internet Network Specialist Relationship Specialty Start Date End Date Unknown, Provider PCP - General 07/04/23
--- OUTSIDE RECORDS SUMMARY | 2024-06-19 07:00 | XMS_ITS | Referral Summary ---
Author Organization [facility] [email or web address] Address [address] [place] [address] Care Team Providers Care Vice Chair Name Role Phone Unknown, Provider Primary Care Provider Unavaila ble Source Comments [facility] [email or web address],non-[facility] Affiliates and Associated Physician Practices is amultiple site organization consisting of ambulatory clinics and hospital sitesin [place], [place], [place] and [place]. This disclosure is being madepursuant to the Care Everywhere program and may not contain all information available regarding this patient. Last updated 17.[email or web address] Allergies No known active allergies Medications * [...] 09/13/2023 7:28 AM CDT Plan of Treatment Not on file Care Teams Vice Chair Relationship Specialty Start Date End Date Unknown, Provider PCP - General 07/04/23
--- OUTSIDE RECORDS SUMMARY | 2024-06-19 07:00 | XMS_ITS | Referral Summary ---
Author Organization [facility] Address [address] [place] [id number] Care Team Providers Care Director Automotive Name Role Phone Unknown, Jaironnfile Primary Care Provider Unavail able Encounters Date Type Department Care Team Description 05/01/2024 8:27 AM SPACE SYSTEMS OPERATIONS SUPERINTENDENT - 05/01/2024 11:[address] [address] Roldan Gonzalez MD Gastroenteritis (Primary Dx) Discharge Disposition: Discharge to home or self care from Last 3 Months Allergies No known active allergies Medications cetirizine (ZyrTEC) 10 mg tablet Take 10 mg by mouth daily Active [id number] folate-algal 27 mg iron-1.13 mg-581.92 mg capsule Take by mouth Active esomeprazole DR (NexIUM) 40 mg capsule Take 1 capsule (40 mg total) by mouth daily before breakfast Active ondansetron ODT (ZOFRAN-ODT) 4 mg disintegrating tablet Take 1 tablet (4 mg total) by mouth every 8 (eight) hours as needed for nausea or vomiting 20 tablet Active Active Problems No known active problems Social History Tobacco Use Types Packs/Day Years Used Date Smoking Tobacco: Never Smokeless Tobacco: Never Alcohol Use Standard Drinks/Week Comments Yes 0 (1 standard drink = 0.6 oz pur e alcohol) Personal Safety Answer Date Recorded Have you ever been in or are you currently in a harmful physical or emotional relationship or is someone making you feel afraid or unsafe? 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 on file Not on file Not on armida e Last Filed Vital Signs Vital Sign Reading Time Taken Comments Blood Pressure 134/89 05/01/2024 11:20 AM SPACE SYSTEMS OPERATIONS SUPERINTENDENT Pulse 68 05/01/2024 11:20 AM SPACE SYSTEMS OPERATIONS SUPERINTENDENT Temperature 36.6 C (97.8 F) 05/01/2024 8:05 AM SPACE SYSTEMS OPERATIONS SUPERINTENDENT Respiratory Rate 16 05/01/2024 11:20 AM SPACE SYSTEMS OPERATIONS SUPERINTENDENT Oxygen Saturation 100% 05/01/2024 11:20 AM SPACE SYSTEMS OPERATIONS SUPERINTENDENT Inhaled Oxygen Concentration - - Weight 81.6 kg (180 lb) 05/01/2024 8:05 AM SPACE SYSTEMS OPERATIONS SUPERINTENDENT Height 167.6 cm (5' 6 ) 05/01/2024 8:05 AM SPACE SYSTEMS OPERATIONS SUPERINTENDENT Body Mass Index 29.05 05/01/2024 8:05 AM SPACE SYSTEMS OPERATIONS SUPERINTENDENT Plan of Treatment Not on file Procedures Procedure Name Priority Date/Time Associated Diagnosis Comments CT ABDOMEN PELVIS W CONTRAST ED 05/01/2024 9:52 AM SPACE SYSTEMS OPERATIONS SUPERINTENDENT EGFR STAT 05/01/2024 8:20 AM SPACE SYSTEMS OPERATIONS SUPERINTENDENT DIFFERENTIAL AUTO STAT 05/01/2024 8:2 0 AM SPACE SYSTEMS OPERATIONS SUPERINTENDENT LIPASE STAT 05/01/2024 8:20 AM SPACE SYSTEMS OPERATIONS SUPERINTENDENT COMPREHENSIVE METABOLIC PANEL STAT 05/01/2024 8:20 AM SPACE SYSTEMS OPERATIONS SUPERINTENDENT CBC WITH AUTO DIFFERENTIAL STAT 05/01/2024 8:20 AM SPACE SYSTEMS OPERATIONS SUPERINTENDENT from Last 3 Months Results * CT Abdomen Pelvis W Contrast (05/01/2024 9:52 AM SPACE SYSTEMS OPERATIONS SUPERINTENDENT) Anatomical Region Laterality Modality Body N/A Computed Tomogra phy 05/01/2024 10:0 1 AM SPACE SYSTEMS OPERATIONS SUPERINTENDENT Narrative 05/01/2024 10:12 AM SPACE SYSTEMS OPERATIONS SUPERINTENDENT EXAM DESCRIPTION: CT ABDOMEN PELVIS W CONTRAST REASON FOR STUDY: RLQ abdominal pain c/o Nausea, Vomiting, Diarrhea and RLQ pain x1 day. Hx: Cancer, GERD, Colon surgery TECHNIQUE: CT scan of the abdomen and pelvis performed with intravenous and without oral contrast using helical scanning technique with dynamic intravenous contrast injection. Reconstructed coronal and sagittal MPR images reviewed. All images stored on PACS. Automated exposure control was used as a dose optimization technique for this examination. CONTRAST TYPE/DOSE: 100mL of IOVERSOL 350 MG IODINE/ML INTRAVENOUS SYRINGE injected via intravenous COMPARISON: No prior studies are available for comparison at time of this dictation. FINDINGS: LOWER CHEST: 3 mm pulmonary nodule in the right middle lobe. This is visualized on series 2, image 1. Subsegmental atelectasis. LIVER: Normal size. Diffuse hepatic steatosis. There are multiple cysts measuring up to 1.8 cm in hepatic segment 2. Please note that there are additional multiple subcentimeter hypoattenuating foci which also most likely represent cysts but in the setting of presumed colon cancer comparison with prior studies is recommended to confirm stability. GALLBLADDER: No stones identified. No wall thickening or inflammatory changes. BILE DUCTS: No intrahepatic or extrahepatic ductal dilatation. SPLEEN: Normal size. No focal lesions. PANCREAS: No identified cystic or solid masses. No significant calcifications. No adjacent inflammation or peripancreatic fluid collections. Pancreatic duct not dilated. ADRENALS: Normal. KIDNEYS/URINARY TRACT: No identified significant cystic or solid masses. No visualized stones. No hydronephrosis or hydroureter. Symmetric enhancement. Urinary bladder is unremarkable. GI: There is moderate distal esophageal wall thickening. This is most likely reactive to reported emesis but esophagitis could appear similar. There is no evidence of bowel obstruction. There are postoperative changes of partial right colectomy with ileocolonic anastomosis. The appendix is surgically absent. There is liquid stool throughout the entire colon representing diarrheal state. No significant colonic wall thickening is identified. PERITONEUM: There is maggie mesentery appearance with multiple prominent mesenteric lymph nodes within the upper abdomen. The lymph nodes measure up to 8 mm in short axis which is within normal limits. No evidence of ascites or pneumoperitoneum. RETROPERITONEUM: No mass or adenopathy. REPRODUCTIVE: No significant abnormality. VASCULATURE: No abdominal aortic aneurysm. MUSCULOSKELETAL: Multilevel degenerative changes are present without fracture. No concerning lesions are present. OTHER: Trace scarring of the midline anterior abdominal wall superior to the umbilicus. IMPRESSION: Liquid stool throughout the colon representing diarrheal state. Moderate distal esophageal wall thickening is most likely reactive to reported emesis but esophagitis could appear similar. Diffuse hepatic steatosis. Postoperative changes of partial right colectomy with ileocolonic anastomosis. Maggie mesentery appearance with multiple prominent mesenteric lymph nodes within the upper abdomen. 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 Given history of malignancy correlation with prior imaging is recommended to confirm stability. THIS IS AN ELECTRONICALLY VERIFIED FINAL REPORT 05/01/2024 10:12 AM - Electronically signed by Devin Cooper M.D. T: Report ID: [id number] Reading Location: [place] [address] Procedure Note Devin Cooper MD - 05/01/2024 EXAM DESCRIPTION: CT ABDOMEN PELVIS W CONTRAST REASON FOR STUDY: RLQ abdominal pain c/o Nausea, Vomiting, Diarrhea and RLQ pain x1 day. Hx: Cancer, GERD, Colon surgery TECHNIQUE: CT scan of the abdomen and pelvis performed with intravenousand without oral contrast using helical scanning technique with dynamic intravenous contrast injection. Reconstructed coronal and sagittal MPRimages reviewed. All images stored on PACS. Automated exposure control was usedas a dose optimization technique for this examination. CONTRAST TYPE/DOSE: 100mL of IOVERSOL 350 MG IODINE/ML INTRAVENOUSSYRINGE injected via intravenous COMPARISON: No prior studies are available for comparison at time of this dictation. FINDINGS: LOWER CHEST: 3 mm pulmonary nodule in the right middle lobe.This is visualized on series 2, image 1. Subsegmental atelectasis. LIVER: Normal size. Diffuse hepatic steatosis. There are multiplecysts measuring up to 1.8 cm in hepatic segment 2. Please note that there are additional multiple subcentimeter hypoattenuating foci which also mostlikely represent cysts but in the setting of presumed colon cancer comparisonwith prior studies is recommended to confirm stability. GALLBLADDER: No stones identified. No wall thickening or inflammatory changes. BILE DUCTS: No intrahepatic or extrahepatic ductal dilatation. SPLEEN: Normal size. No focal lesions. PANCREAS: No identified cystic or solid masses. No significant calcifications. No adjacent inflammation or peripancreatic fluidcollections. Pancreatic duct not dilated. ADRENALS: Normal. KIDNEYS/URINARY TRACT: No identified significant cystic or solid masses.No visualized stones. No hydronephrosis or hydroureter. Symmetricenhancement. Urinary bladder is unremarkable. GI: There is moderate distal esophageal wall thickening. This is most likely reactive to reported emesis but esophagitis could appear similar. There is no evidence of bowel obstruction. There are postoperativechanges of partial right colectomy with ileocolonic anastomosis. The appendix is surgically absent. There is liquid stool throughout the entire colon representing diarrheal state. No significant colonic wall thickening is identified. PERITONEUM: There is maggie mesentery appearance with multiple prominent mesenteric lymph nodes within the upper abdomen. The lymph nodes measureup to 8 mm in short axis which is within normal limits. No evidence ofascites or pneumoperitoneum. RETROPERITONEUM: No mass or adenopathy. REPRODUCTIVE: No significant abnormality. VASCULATURE: No abdominal aortic aneurysm. MUSCULOSKELETAL: Multilevel degenerative changes are present without fracture. No concerning lesions are present. OTHER: Trace scarring of the midline anterior abdominal wall superior tothe umbilicus. IMPRESSION: Liquid stool throughout the colon representing diarrheal state. Moderate distal esophageal wall thickening is most likely reactive to reported emesis but esophagitis could appear similar. Diffuse hepatic steatosis. Postoperative changes of partial right colectomy with ileocolonicanastomosis. Maggie mesentery appearance with multiple prominent mesenteric lymph nodes within the upper abdomen. 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 Given history of malignancy correlation with prior imaging is recommended to confirmstability. THIS IS AN ELECTRONICALLY VERIFIED FINAL REPORT 05/01/2024 10:12 AM - Electronically signed by Devin Cooper M.D. MM T: Report ID: [id number] Reading Location: [place] [address] [facility] [address] [facility] IM[address] PROCEDURES Final Result * eGFR (05/01/2024 8:20 AM SPACE SYSTEMS OPERATIONS SUPERINTENDENT) eGFR >90 >=60 mL/min/1. 73 m2 Comment: Interpretive Data Reference Interval Normal >/= 90 mL/min/1.73m2 Mildly decreased* 60 - 89 mL/min/1.73m2 Mildly to moderately decreased 45 - 59 mL/min/1.73m2 Moderately to severely decreased 30 - 44 mL/min/1.73m2 Severely decreased 15 - 29 mL/min/1.73m2 Kidney Failure < 15 mL/min/1.73m2 *Relative to young adult level Estimated glomerular filtration rate is determined by the 2020 CKD-EPI equation recommended by the National Kidney Foundation (A Unifying Approach to GFR Estimation: Recommendations of the NKF-ASK Task Force on Reassessing the Inclusion of Race in Diagnosing Kidney Disease, JASN 2020). The CKD-EPI equation should not be used for patients with unstable renal function and has not been validated in children and those over 70. Current interpretive data was last reviewed 2021. Blood 05/01/2024 8:20 AM SPACE SYSTEMS OPERATIONS SUPERINTENDENT 05/01/2024 8:25 AM SPACE SYSTEMS OPERATIONS SUPERINTENDENT [facility] LAB BLOOD ORDERABLES Final Resu lt [place] [id number] [facility] Department of Laboratories [place], [place] [id number] * (ABNORMAL) Differential, auto (05/01/2024 8:20 AM SPACE SYSTEMS OPERATIONS SUPERINTENDENT) Neutrophil abs 7.5(H) 1.5 - 6.5 K/cumm Imm gran abs 0.0 0.0 - 0.1 K/cumm [facility] Lymphocyte abs 0.6(L) 0.8 - 3.3 K/cumm [facility] Monocyte abs 0.4 0.2 - 0.8 K/cumm [facility] Eosinophil abs 0.0 0.0 - 0.5 K/cumm [facility] Basophil abs 0.0 0.0 - 0.1 K/cumm [facility] Neutrophil pct 88.6 % [facility] Comment: Interpretive Data Percent cell count reference ranges are not reported, since discordance with absolute values may lead to misinterpretation of CBC data. Current Interpretive Data was last revised on 2017. Imm gran pct 0.2 % [facility] Comment: Interpretive Data Percent cell count reference ranges are not reported, since discordance with absolute values may lead to misinterpretation of CBC data. Current Interpretive Data was last revised on 2017. Lymphocyte pct 6.6 % [facility] Comment: Interpretive Data Percent cell count reference ranges are not reported, since discordance with absolute values may lead to misinterpretation of CBC data. Current Interpretive Data was last revised on 2017. Monocyte pct 4.4 % [facility] Comment: Interpretive Data Percent cell count reference ranges are not reported, since discordance with absolute values may lead to misinterpretation of CBC data. Current Interpretive Data was last revised on 2017. Eosinophil pct 0.1 % [facility] Comment: Interpretive Data Percent cell count reference ranges are not reported, since discordance with absolute values may lead to misinterpretation of CBC data. Current Interpretive Data was last revised on 2017. Basophil pct 0.1 % [facility] Comment: Interpretive Data Percent cell count reference ranges are not reported, since discordance with absolute values may lead to misinterpretation of CBC data. Current Interpretive Data was last revised on 2017. Blood 05/01/2024 8:20 AM SPACE SYSTEMS OPERATIONS SUPERINTENDENT 05/01/2024 8:25 AM SPACE SYSTEMS OPERATIONS SUPERINTENDENT [facility] LAB BLOOD ORDERABLES Final Resu lt [facility] [address] [facility] [place] [address] * CBC with auto differential (05/01/2024 8:20 AM SPACE SYSTEMS OPERATIONS SUPERINTENDENT) WBC 8.5 3.8 - 9.9 K/cumm Hgb 14.7 11.9 - 15.5 g/dL [facility] Hct 43.3 35.6 - 45.5 % [facility] Plt 262 150 - 400 K/cumm [facility] MPV 9.4 9.1 - 12.3 fL [facility] RBC 4.70 3.90 - 5.20 M/cumm [facility] MCV 92.1 81.3 - 96.4 fL [facility] MCH 31.3 27.1 - 33.3 pg [facility] MCHC 33.9 32.3 - 35.7 g/dL [facility] RDW CV 12.6 11.1 - 14.9 % [facility] RDW SD 42.5 35.7 - 48.1 fL [facility] NRBC abs 0.00 0.00 - 0.01 K/cumm [facility] Blood Venous blood specimen / Unknown 05/01/2024 8:20 AM SPACE SYSTEMS OPERATIONS SUPERINTENDENT 05/01/2024 8:25 AM SPACE SYSTEMS OPERATIONS SUPERINTENDENT [facility] BLOOD ORDERABLES Final Resu lt Performing Organization Address City/[facility] Co de Phone Number [address] [address] * Lipase (05/01/2024 8:20 AM SPACE SYSTEMS OPERATIONS SUPERINTENDENT) Pathologist [facility] Lipase 14 10 - 99 Units/L Blood Venous blood specimen / Unknown 05/01/2024 8:20 AM SPACE SYSTEMS OPERATIONS SUPERINTENDENT 05/01/2024 8:25 AM SPACE SYSTEMS OPERATIONS SUPERINTENDENT [facility] Carlos CONKLIN LAB BLOOD ORDERABLES Final Resu lt Performing Organization Address [facility] de Phone Number [address] [address] * Comprehensive metabolic panel (05/01/2024 8:20 AM SPACE SYSTEMS OPERATIONS SUPERINTENDENT) Pathologist [facility] Sodium 136 135 - 145 mmol/L Potassium, pl 4.1 3.3 - 4.9 mmol/L [facility] Chloride 102 97 - 110 mmol/L [facility] CO2 23 22 - 32 mmol/L [facility] Anion gap 11 2 - 15 mmol/L [facility] BUN 25 6 - 25 mg/dL [facility] Creatinine 0.69 0.60 - 1.10 mg/dL [facility] Glucose 122 70 - 199 mg/dL [facility] Comment: Interpretive Data Fasting glucose >/= 126 mg/dl is diagnostic for diabetes. Fasting is defined as no caloric intake for at least 8 hours. Fasting glucose between 100 mg/dl to 125 mg/dl is diagnostic of prediabetes. In a patient with classic symptoms of hyperglycemia or hyperglycemic crisis, a random glucose >/= 200 mg/dl is diagnostic for diabetes. In the absence of unequivocal hyperglycemia, results should be confirmed by repeat testing. The classification and Diagnosis of Diabetes Diabetes Care 202; 46: S19-S40. Current interpretive data was last revised 2022. Calcium 9.4 8.5 - 10.3 mg/dL [facility] Bilirubin, total 0.7 0.1 - 1.2 mg/dL [facility] Protein, pl 7.8 6.5 - 8.5 g/dL [facility] Albumin 4.4 3.5 - 5.0 g/dL [facility] Alk phos 97 40 - 130 Units/L [facility] ALT 29 7 - 45 Units/L [facility] AST 25 10 - 45 Units/L [facility] Blood 05/01/2024 8:20 AM SPACE SYSTEMS OPERATIONS SUPERINTENDENT 05/01/2024 8:25 AM SPACE SYSTEMS OPERATIONS SUPERINTENDENT [facility] LAB BLOOD ORDERABLES Final Resu lt [facility]ARE[facility] [address] [facility] [place] [address] from Last 3 Months Insurance [facility] CHOICE PLUS [facility] HMO/PPO Address: [facility] [address] [place] [address] Care Teams Director Automotive Relationship Specialty Start Date End Date Unknown, Notinfile PCP - General 05/01/24
--- OUTSIDE RECORDS SUMMARY | 2024-06-19 07:00 | XMS_ITS | Clinical Summary ---
Author Organization [facility] Address [address] [place] [id number] Care Team Providers Care Septic Tank Cleaner Name Role Phone Unavailable Primary Care Provider Unavailabl e Social History Tobacco Use Types Packs/Day Years Used Date Smoking Tobacco: Never Comments Unknown Sex and Gender Information Value Date Recorded Sex Assigned at Not on file Legal Sex Female 12:42 AM CDT Gender Identity Not on file Sexual Orientation Not on file Last Filed Vital Signs Vital Sign Reading Time Taken Comments Blood Pressure 108/68 07/23/2014 11:56 AM CDT Pulse 59 07/23/2014 11:56 AM CDT Temperature - - Respiratory Rate - - Oxygen Saturation - - Inhaled Oxygen Concentration - - Weight 73.9 kg (163 lb) 07/23/2014 11:56 AM CDT Height 165.1 cm (5' 5 ) 07/23/2014 11:56 AM CDT Body Mass Index 27.12 07/23/2014 11:56 AM CDT Plan of Treatment Health Maintenance Due Date Last Done Comments Cervical Cancer Screening Pa p Smear (Age 30 to 64) Every 3 Years 1965 Colorectal Cancer Screening Colonoscopy (10 Years) 1965 Annual Physical 01/20/1968 Hepatitis C 1983 DTaP, Tdap and Td Vaccines ( 1 - Tdap) 01/20/1984 Hepatitis B Vaccines (1 of 3 - 19+ 3-dose series) 01/20/1984 Cervical Cancer Screening Pa p with HPV Testing (Age 30 to 64) Every 5 Years 1995 Cervical Cancer Screening with HPV 1995 Mammogram Screening 2005 Zoster Vaccines (1 of 2) 2015 COVID-19 Vaccine ( - 2023-2 5 season) 2023 Influenza Adult (#1) 2024 Meningococcal B Vaccine Aged Out No l onger eligible based on patient's age to complete this topic Meningococcal Vaccine Aged Out No floresita [place] eligible based on patient's age to complete this topic Pneumococcal Vaccine: Pediat rics (0 to 5 Years) and At-Risk Patients (6 to 64 Years) Aged Out No longer eligible b ased on patient's age to complete this topic RSV Immunizations Under 20 Months Aged Out No longer eligible based on patient's age to complete this topic
--- OUTSIDE RECORDS SUMMARY | 2024-06-19 07:00 | XMS_ITS | Patient Health Summary ---
Author Organization [facility] Address [address] [place] [address] Care Team Providers Care Transition Specialist Name Role Phone Unknown, Provider Primary Care Provider Unavaila ble Note from [facility],non-owned Affiliates and Associated Physician Practices is amultiple site organization consisting of ambulatory clinics and hospital sitesin [place], [place], [place] and [place]. This disclosure is being madepursuant to the Care Everywhere program and may not contain all information available regarding this patient. Last updated 17.[facility] Allergies No known active allergies Medications * Be aware that medications may not be up to date on this document. Alwaysverify current medications with the patient. * cetirizine (ZyrTEC) 10 MG tablet Take 1 (one) tablet by mouth once daily * esomeprazole (NexIUM) 40 MG capsule Take 1 (one) capsule by mouth once daily * L-METHYLFOLATE CALCIUM PO * omeprazole (PriLOSEC) 20 MG capsule Take 2 (two) capsules by mouth daily before breakfast Social History Tobacco Use Types Packs/Day Years [...] Mass Index 32.45 09/13/2023 7:28 AM CDT Procedures * NV ESOPH FUNCT TST ALLIE NASL CATH ELEC PLCMT; PROLNG(Performed 09/13/2023) Performed for Gastroesophageal reflux disease, unspecified whether esophagitis present * NV ESOPHAGUS MOTILITY STUDY(Performed 07/04/2023) Performed for Gastroesophageal reflux disease without esophagitis * DERMATOPATHOLOGY(Performed 05/04/2014) Results * PATHOLOGY TISSUE FOR DERMATOLOGY (05/04/2014 12:00 AM SCIENTIST) Result CASE: [id number] PATIENT: VIOLETTA REY PATHOLOGIC DIAGNOSIS: A. Posterior midline neck: INTRADERMAL NEVUS, NEUROTIZED NOT PRESENT AT SAMPLED MARGIN B. 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 Check margins. GROSS DESCRIPTION: A: Received is one formalin filled container labeled with the patient's name and designated posterior midline neck. The specimen consists of a shave biopsy measuring 8x6x4 mm. The margin is inked green. The specimen is bisected and submitted in 1 cassette. Jar 0. B: Received is one formalin filled container labeled with the patient's name and designated left posterior neck. The specimen consists of a shave biopsy measuring 5x4x3 mm. The margin is inked green. Jar 0. MICROSCOPIC DESCRIPTION: SPECIMEN A: Sections show nests, cords, and strands of melanocytes that mature with descent into the dermis. There are areas in which the melanocytes have a neuroid appearance. This lesion is not present at the sampled margin of the specimen. SPECIMEN B: There are nests of melanocytes within the dermis that mature with depth. Lesion is present at the margin of the specimen. Electronically signed out by Anitha Dubois M.D. 05/06/2014 1:33:14PM [facility] Comment: Performed at: Dermatopathology Laboratory [facility] - Department of Dermatology [address] [place] [address], [address] [place] [address] Phone number: [phone] FAX: [phone] 05/04/2014 05/05/2014 Jessica Squires MD LAB - PATHOLOGY/CYTO LOGY ORDERABLES [facility] [address] [facility] [facility] [place] [address], [facility] [phone] Care Teams Transition Specialist Relationship Specialty Start Date End Date Unknown, Provider PCP - General 07/04/23
--- OUTSIDE RECORDS SUMMARY | 2024-06-19 07:00 | XMS_ITS | Clinical Summary ---
Author Organization TEJA RODRIGUEZ [facility] Address [address] [facility] [address] [place] [address] Care Team Providers Care Switch Crew Supervisor Name Role Phone Unavailable Primary Care Provider Unavailabl e Encounters Date Type Department Care Team Description 05/01/2024 External Device Data STL ABSTRACTION Provider, Abstract from Last 3 Months Social History Tobacco Use Types Packs/Day Years Used Date Smoking Tobacco: Never Assessed Comments Unknown Sex and Gender Information Value Date Recorded Sex Assigned at Not on file Legal Sex Female 10:41 AM ETL SOFTWARE ENGINEER Gender Identity Not on file Sexual Orientation Not on file Plan of Treatment Health Maintenance Due Date Last Done Comments DTAP/TDAP/TD VACCINES (1 - Tdap) 01/20/1984 HEPATITIS B VACCINES (1 of 3 - 19+ 3-dose series) 01/07 CERVICAL CANCER SCREENING 1995 BREAST CANCER SCREENING 2005 COLORECTAL SCREENING 2010 Colorectal Cancer Screening 2010 FIT-DNA Q 3 years 2010 FIT/FOBT Q 1 year 2010 Flex Sig/CT Colonography Q 5 years 2010 ZOSTER VACCINE (1 of 2) 2015 INFLUENZA VACCINE (#1) 2023 Insurance RX [employer] RX Member Subscriber Plan / Payer (Ef fective 2023-Present) Name:Violetta Gupta Relation to Subscriber:Not on file Name:Violetta Gupta Subscriber ID:Not on file Date of :1965 Payer ID:Not on file Group ID:[id number] Type:RX Commercial Address: [place]
--- OUTSIDE RECORDS SUMMARY | 2024-06-19 07:00 | XMS_ITS | Clinical Summary ---
Author Organization [address] Address [address] [place] [id number] Care Team Providers Care Lithographer Apprentice Name Role Phone Unknown, Notinfile Primary Care Provider Unavail able Allergies No known active allergies Medications cetirizine (ZyrTEC) 10 mg tablet Take 10 mg by mouth daily Active [id number] folate-algal 27 mg iron-1.13 mg-581.92 mg capsule Take by mouth Active esomeprazole DR (NexIUM) 40 mg capsule Take 1 capsule (40 mg total) by mouth daily before breakfast Active ondansetron ODT (ZOFRAN-ODT) 4 mg disintegrating tablet Take 1 tablet (4 mg total) by mouth every 8 (eight) hours as needed for nausea or vomiting 20 tablet Active Active Problems No known active problems Encounters Date Type Department Care Team Description 05/01/2024 8:27 AM [facility] - 05/01/2024 11:25 AM [facility] Emergency [address] [address] Roldan Gonzalez MD Gastroenteritis (Primary Dx) Discharge Disposition: Discharge to home or self care from Last 3 Months Surgical History Surgery Date Site/Laterality Comments COLON SURGERY COLONOSCOPY UPPER GASTROINTESTINAL ENDOSCOPY Medical History Medical History Date Comments Cancer (HCC) Anemia GERD (gastroesophageal reflux disease) Cataract Family History Medical History Relation Name Comments Cancer Other Diabetes Other Hypertension Other Relation Name Status Comments Other Social History Tobacco Use Types Packs/Day Years [...] on file Legal Sex Female 8:11 PM BARK PRESS OPERATOR Gender Identity Not on file Sexual Orientation Not on file 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 Not on file Not on file Not on armida e Obstetrics History Last Filed Vital Signs Vital Sign Reading Time Taken Comments Blood Pressure 134/89 05/01/2024 11:20 AM BARK PRESS OPERATOR Pulse 68 05/01/2024 11:20 AM BARK PRESS OPERATOR Temperature 36.6 C (97.8 F) 05/01/2024 8:05 AM BARK PRESS OPERATOR Respiratory Rate 16 05/01/2024 11:20 AM BARK PRESS OPERATOR Oxygen Saturation 100% 05/01/2024 11:20 AM BARK PRESS OPERATOR Inhaled Oxygen Concentration - - Weight 81.6 kg (180 lb) 05/01/2024 8:05 AM BARK PRESS OPERATOR Height 167.6 cm (5' 6 ) 05/01/2024 8:05 AM BARK PRESS OPERATOR Body Mass Index 29.05 05/01/2024 8:05 AM BARK PRESS OPERATOR Plan of Treatment Health Maintenance Due Date Last Done Comments Breast Cancer Screening-Mammogram 1965 Cervical Cancer Screening 1965 Colon Cancer Screening-Colonoscopy 1965 Depression Screening 1965 Hepatitis C Screening 1965 Regular Well Visit/Exam 18-64 1983 Zoster Vaccine (1 of 2) 2015 DTaP/Tdap/Td Vaccine (2 - Td or Tdap) 07/06/2021 07/07/2011 Covid-19 Vaccine ( season) 2023 04/11/2022, 09/23/2021, 02/04/2021, Additional history exists Influenza Vaccine (#1) 2023 Hepatitis B Screening Completed 08/10/2011, 012 Pneumococcal vaccine <65 Aged Out No longer eligible based on patient's age to complete this topic Procedures Procedure Name Priority Date/Time Associated Diagnosis Comments CT ABDOMEN PELVIS W CONTRAST ED 05/01/2024 9:52 AM BARK PRESS OPERATOR EGFR STAT 05/01/2024 8:20 AM BARK PRESS OPERATOR DIFFERENTIAL AUTO STAT 05/01/2024 8:2 0 AM BARK PRESS OPERATOR LIPASE STAT 05/01/2024 8:20 AM BARK PRESS OPERATOR COMPREHENSIVE METABOLIC PANEL STAT 05/01/2024 8:20 AM BARK PRESS OPERATOR CBC WITH AUTO DIFFERENTIAL STAT 05/01/2024 8:20 AM BARK PRESS OPERATOR from Last 3 Months Results * CT Abdomen Pelvis W Contrast (05/01/2024 9:52 AM BARK PRESS OPERATOR) Anatomical Region Laterality Modality Body N/A Computed Tomogra phy 05/01/2024 10:0 1 AM BARK PRESS OPERATOR Narrative 05/01/2024 10:12 AM BARK PRESS OPERATOR EXAM DESCRIPTION: CT ABDOMEN PELVIS W CONTRAST [...] by Devin Cooper M.D. T: Report ID: [id number] Reading Location: [id number] Procedure Note Devin Cooper MD - 05/01/2024 [...] Devin Cooper M.D. MM T: Report ID: [id number] Reading Location: [place] [address] Roldan Gonzalez MD IMG CT PROCEDURES Final Result * eGFR (05/01/2024 8:20 AM BARK PRESS OPERATOR) Pathologist [facility] eGFR >90 >=60 mL/min/1. 73 m2 Comment: [...] of Race in Diagnosing Kidney Disease, JASN 202). The CKD-EPI equation should not be used for patients with unstable renal function and has not been validated in children and those over 70. Current interpretive data was last reviewed 2021. Blood 05/01/2024 8:20 AM BARK PRESS OPERATOR 05/01/2024 8:25 AM BARK PRESS OPERATOR Roldan Gonzalez MD LAB BLOOD ORDERABLES Final Resu lt VALERIE [address] [facility] Department [place] [address] * (ABNORMAL) Differential, auto (05/01/2024 8:20 AM BARK PRESS OPERATOR) Neutrophil abs 7.5(H) 1.5 - 6.5 K/cumm Imm gran abs 0.0 0.0 - 0.1 K/cumm [facility] Lymphocyte abs 0.6(L) 0.8 - 3.3 K/cumm [facility] Monocyte abs 0.4 0.2 - 0.8 K/cumm [facility] Eosinophil abs 0.0 0.0 - 0.5 K/cumm [facility] Basophil abs 0.0 0.0 - 0.1 K/cumm [facility] Neutrophil pct 88.6 % [facility] Comment: Interpretive Data Percent cell count reference ranges are not reported, since discordance with absolute values may lead to misinterpretation of CBC data. Current Interpretive Data was last revised on 2017. Imm gran pct 0.2 % [facility] Comment: Interpretive Data Percent cell count reference ranges are not reported, since discordance with absolute values may lead to misinterpretation of CBC data. Current Interpretive Data was last revised on 2017. Lymphocyte pct 6.6 % [facility] Comment: Interpretive Data Percent cell count reference ranges are not reported, since discordance with absolute values may lead to misinterpretation of CBC data. Current Interpretive Data was last revised on 2017. Monocyte pct 4.4 % [facility] Comment: Interpretive Data Percent cell count reference ranges are not reported, since discordance with absolute values may lead to misinterpretation of CBC data. Current Interpretive Data was last revised on 2017. Eosinophil pct 0.1 % [facility] Comment: Interpretive Data Percent cell count reference ranges are not reported, since discordance with absolute values may lead to misinterpretation of CBC data. Current Interpretive Data was last revised on 2017. Basophil pct 0.1 % [facility] Comment: Interpretive Data Percent cell count reference ranges are not reported, since discordance with absolute values may lead to misinterpretation of CBC data. Current Interpretive Data was last revised on 2017. Blood 05/01/2024 8:20 AM BARK PRESS OPERATOR 05/01/2024 8:25 AM BARK PRESS OPERATOR [facility] LAB BLOOD ORDERABLES Final Resu lt [address] [place] [address] * CBC with auto differential (05/01/2024 8:20 AM BARK PRESS OPERATOR) [facility] WBC 8.5 3.8 - 9.9 K/cumm Hgb 14.7 11.9 - 15.5 g/dL [facility] Hct 43.3 35.6 - 45.5 % [facility] Plt 262 150 - 400 K/cumm [facility] MPV 9.4 9.1 - 12.3 fL [facility] RBC 4.70 3.90 - 5.20 M/cumm [facility] MCV 92.1 81.3 - 96.4 fL [facility] MCH 31.3 27.1 - 33.3 pg [facility] MCHC 33.9 32.3 - 35.7 g/dL [facility] RDW CV 12.6 11.1 - 14.9 % [facility] RDW SD 42.5 35.7 - 48.1 fL [facility] NRBC abs 0.00 0.00 - 0.01 K/cumm [facility] Blood Venous blood specimen / Unknown 05/01/2024 8:20 AM BARK PRESS OPERATOR 05/01/2024 8:25 AM BARK PRESS OPERATOR [facility] LAB BLOOD ORDERABLES Final Resu lt [address] [place] [address] * Lipase (05/01/2024 8:20 AM BARK PRESS OPERATOR) [facility] Lipase 14 10 - 99 Units/L Blood Venous blood specimen / Unknown 05/01/2024 8:20 AM BARK PRESS OPERATOR 05/01/2024 8:25 AM BARK PRESS OPERATOR Re[facility] LAB BLOOD ORDERABLES Final Resu lt [address] [place] [address] * Comprehensive metabolic panel (05/01/2024 8:20 AM BARK PRESS OPERATOR) Sodium 136 135 - 145 mmol/L Potassium, pl 4.1 3.3 - 4.9 mmol/L [facility] Chloride 102 97 - 110 mmol/L [facility] CO2 23 22 - 32 mmol/L [facility] Anion gap 11 2 - 15 mmol/L [facility] BUN 25 6 - 25 mg/dL [facility] Creatinine 0.69 0.60 - 1.10 mg/dL [facility] Glucose 122 70 - 199 mg/dL [facility] Comment: Interpretive Data Fasting glucose >/= 126 [...] classification and Diagnosis of Diabetes Diabetes Care 2021; 46: S19-S40. Current interpretive data was last revised 2022. Calcium 9.4 8.5 - 10.3 mg/dL [facility] Bilirubin, total 0.7 0.1 - 1.2 mg/dL [facility] Protein, pl 7.8 6.5 - 8.5 g/dL [facility] Albumin 4.4 3.5 - 5.0 g/dL [facility] Alk phos 97 40 - 130 Units/L [facility] ALT 29 7 - 45 Units/L [facility] AST 25 10 - 45 Units/L [facility] Blood 05/01/2024 8:20 AM BARK PRESS OPERATOR 05/01/2024 8:25 AM BARK PRESS OPERATOR [facility] LAB BLOOD ORDERABLES Final Resu lt VALERIE [address] [facility] Department [place] [address] from Last 3 Months Insurance [facility] CHOICE PLUS [facility] HMO/PPO Address: [place] [address] Care Teams Lithographer Apprentice Relationship Specialty Start Date End Date Unknown, Notinfile PCP - General 05/01/24
== END 2024-06-19 06:58 | disposition home or self-care (01) ==
PROVIDERS: PCP Family Medicine; Visit Provider Nurse Practitioner Adult Health
DX: M25.552 Pain in left hip (principal)
CPT/HCPCS: 73502

== ENCOUNTER 2024-07-24 08:26 | Outpatient (CLI) | payer OTHER, SELFPAY ==
--- NOTE | ~2024-07-24 | CT_ITS ---
CT of the Abdomen and Pelvis: Indication: Panniculitis Technique: 2.5 mm axial scans were obtained through the abdomen and pelvis prior to and following in travenous administration of 100 cc of Omnipaque 350. Dose reduction technique was used on this scan b y utilizing automated exposure control and iterative reconstruction technique. The dose-length produc t (DLP) was 1008.75 mGy-cm. Findings: Scans through the lung bases are unremarkable. Hepatic cysts are present. The spleen, pancreas, gallbladder, adrenals and kidneys are within normal limits. There are atherosclerotic calcifications of the aorta. No lymphadenopathy. No bowel obstruction or bowel wall thickening. There is postoperative change of the right colon. Images through the pelvis were performed. Urinary bladder unremarkable. No pelvic mass seen. No ascit es. Impression: No significant abnormalities seen. Reviewed, dictated and finalized at [facility]. Impression: No significant abnormalities seen.
--- NOTE | ~2024-07-24 | MR_ITS ---
MRI of the left hip Clinical history: Pain Technique: Coronal T1-weighted, T2-weighted, and proton-density fat-sat images, and axial T1-weighted and proton-density fat-sat images were acquired through the pelvis. Coronal T2-weighted images and c oronal, axial, and sagittal proton-density fat-sat images were acquired through the left hip. Findings: There is no fracture or avascular necrosis of either hip. Bone marrow signals the proximal femora and pelvic bones are unremarkable. There is mild chondral thinning of the bilateral hip joints . No significant joint effusion. No left acetabular tear identified. There is probable partial tearing of the left gluteus medias/minimus tendon near the greater trochant er versus possibly mild trochanteric bursitis. No complete tendon tear evident. Remaining musculature and tendons are intact. IMPRESSION: Probable partial tearing of the left gluteus medius and minimus tendons near the greater trochanter. Early trochanteric bursitis is a potential alternative consideration. Reviewed, dictated and finalized at location . IMPRESSION: Probable partial tearing of the left gluteus medius and minimus tendons near th e greater trochanter. Early trochanteric bursitis is a potential alternative co nsideration.
--- OUTSIDE RECORDS SUMMARY | 2024-07-24 08:43 | XMS_ITS | Clinical Summary ---
Author Organization [facility] [employer] Address [address] [facility] [place] [address] Care Team Providers Care Legal Executive Name Role Phone Unknown, Provider Primary Care Provider Unavaila ble Source Comments [facility] [employer],non-[facility] Affiliates and Associated Physician Practices is amultiple site organization consisting of ambulatory clinics and hospital sitesin [place], [place], [place] and [place]. This disclosure is being madepursuant to the Care Everywhere program and may not contain all information available regarding this patient. Last updated 17.[facility] [employer] [facility] [employer] Allergies No known active allergies Medications * Be aware that medications may not be up to date on this document. Alwaysverify current medications with the patient. 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
--- OUTSIDE RECORDS SUMMARY | 2024-07-24 08:43 | XMS_ITS | Referral Summary ---
Author Organization [facility] Address [address] [place] [phone] Care Team Providers Care Induction Furnace Operator Name Role Phone Unknown, Jaironnfile Primary Care Provider Unavail able Encounters Date Type Department Care Team Description 05/01/2024 8:27 AM FUR DRY CLEANER - 05/01/2024 11:[address] [address] Roldan Gonzalez MD Gastroenteritis (Primary Dx) Discharge Disposition: Discharge to home or self care from Last 3 Months Allergies No known active allergies Medications cetirizine (ZyrTEC) 10 mg tablet Take 10 mg by mouth daily Active fkseocdh24-cuqu-Ec folate-algal 27 mg iron-1.13 mg-581.92 mg capsule [...] on file Legal Sex Female 8:11 PM FUR DRY CLEANER Gender Identity Not on file Sexual Orientation Not on file 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 Not on file Not on armida e Last Filed Vital Signs Vital Sign Reading Time Taken Comments Blood Pressure 134/89 05/01/2024 11:20 AM FUR DRY CLEANER Pulse 68 05/01/2024 11:20 AM FUR DRY CLEANER Temperature 36.6 C (97.8 F) 05/01/2024 8:05 AM FUR DRY CLEANER Respiratory Rate 16 05/01/2024 11:20 AM FUR DRY CLEANER Oxygen Saturation 100% 05/01/2024 11:20 AM FUR DRY CLEANER Inhaled Oxygen Concentration - - Weight 81.6 kg (180 lb) 05/01/2024 8:05 AM FUR DRY CLEANER Height 167.6 cm (5' 6 ) 05/01/2024 8:05 AM FUR DRY CLEANER Body Mass Index 29.05 05/01/2024 8:05 AM FUR DRY CLEANER Plan of Treatment Not on file Procedures Procedure Name Priority Date/Time Associated Diagnosis Comments CT ABDOMEN PELVIS W CONTRAST ED 05/01/2024 9:52 AM FUR DRY CLEANER EGFR STAT 05/01/2024 8:20 AM FUR DRY CLEANER DIFFERENTIAL AUTO STAT 05/01/2024 8:2 0 AM FUR DRY CLEANER LIPASE STAT 05/01/2024 8:20 AM FUR DRY CLEANER COMPREHENSIVE METABOLIC PANEL STAT 05/01/2024 8:20 AM FUR DRY CLEANER CBC WITH AUTO DIFFERENTIAL STAT 05/01/2024 8:20 AM FUR DRY CLEANER from Last 3 Months Results * CT Abdomen Pelvis W Contrast (05/01/2024 9:52 AM FUR DRY CLEANER) Anatomical Region Laterality Modality Body N/A Computed Tomogra phy 05/01/2024 10:0 1 AM FUR DRY CLEANER Narrative 05/01/2024 10:12 AM FUR DRY CLEANER EXAM DESCRIPTION: CT ABDOMEN PELVIS W CONTRAST [...] by Devin Cooper M.D. T: Report ID: [id number] Reading Location: [place] [address] Procedure Note Devin Cooper MD - 05/01/2024 [...] Devin Cooper M.D. MM T: Report ID: [id number] Reading Location: [place] [address] [facility] IMG CT PROCEDURES Final Result * eGFR (05/01/2024 8:20 AM FUR DRY CLEANER) eGFR >90 >=60 mL/min/1. 73 m2 Comment: [...] last reviewed 2021. Blood 05/01/2024 8:20 AM FUR DRY CLEANER 05/01/2024 8:25 AM FUR DRY CLEANER [facility] LAB BLOOD ORDERABLES Final Resu lt [place] [id number] [facility] Department of Laboratories [place], [place] [id number] * (ABNORMAL) Differential, auto (05/01/2024 8:20 AM FUR DRY CLEANER) Neutrophil abs 7.5(H) 1.5 - 6.5 K/cumm Imm gran abs 0.0 0.0 - 0.1 K/cumm [facility] Lymphocyte abs 0.6(L) 0.8 - 3.3 K/cumm [facility] Monocyte abs 0.4 0.2 - 0.8 K/cumm [facility] Eosinophil abs 0.0 0.0 - 0.5 K/cumm [facility] Basophil abs 0.0 0.0 - 0.1 K/cumm [facility] Neutrophil pct 88.6 % [facility] Comment: Interpretive Data Percent cell count reference ranges are not reported, since discordance with absolute values may lead to misinterpretation of CBC data. Current Interpretive Data was last revised on 2017. Imm gran pct 0.2 % [facility] Comment: Interpretive Data Percent cell count reference ranges are not reported, since discordance with absolute values may lead to misinterpretation of CBC data. Current Interpretive Data was last revised on 2017. Lymphocyte pct 6.6 % [facility] Comment: Interpretive Data Percent cell count reference ranges are not reported, since discordance with absolute values may lead to misinterpretation of CBC data. Current Interpretive Data was last revised on 2017. Monocyte pct 4.4 % [facility] Comment: Interpretive Data Percent cell count reference ranges are not reported, since discordance with absolute values may lead to misinterpretation of CBC data. Current Interpretive Data was last revised on 2017. Eosinophil pct 0.1 % [facility] Comment: Interpretive Data Percent cell count reference ranges are not reported, since discordance with absolute values may lead to misinterpretation of CBC data. Current Interpretive Data was last revised on 2017. Basophil pct 0.1 % [facility] Comment: Interpretive Data Percent cell count reference ranges are not reported, since discordance with absolute values may lead to misinterpretation of CBC data. Current Interpretive Data was last revised on 2017. Blood 05/01/2024 8:20 AM FUR DRY CLEANER 05/01/2024 8:25 AM FUR DRY CLEANER [facility] LAB BLOOD ORDERABLES Final Resu lt [facility] [address] [facility] Department [place] [address] * CBC with auto differential (05/01/2024 8:20 AM FUR DRY CLEANER) WBC 8.5 3.8 - 9.9 K/cumm Hgb 14.7 11.9 - 15.5 g/dL [facility] Hct 43.3 35.6 - 45.5 % [facility] Plt 262 150 - 400 K/cumm [facility] MPV 9.4 9.1 - 12.[address] [facility] RBC 4.70 3.90 - 5.20 M/cumm [facility] MCV 92.1 81.3 - 96.[address] [facility] MCH 31.3 27.1 - 33.[address] [facility] MCHC 33.9 32.3 - 35.7 g/dL [facility] RDW CV 12.6 11.1 - 14.9 % [facility] RDW SD 42.5 35.7 - 48.[address] [facility] NRBC abs 0.00 0.00 - 0.01 K/cumm [facility] Blood Venous blood specimen / Unknown 05/01/2024 8:20 AM FUR DRY CLEANER 05/01/2024 8:25 AM FUR DRY CLEANER [facility] LAB BLOOD ORDERABLES Final Resu lt Performing Organization Address City/[facility] Co de Phone Number [address] [address] * Lipase (05/01/2024 8:20 AM FUR DRY CLEANER) Pathologist [facility] Lipase 14 10 - 99 Units/L Blood Venous blood specimen / Unknown 05/01/2024 8:20 AM FUR DRY CLEANER 05/01/2024 8:25 AM FUR DRY CLEANER [facility] Carlos CONKLIN LAB BLOOD ORDERABLES Final Resu lt Performing Organization Address [facility] de Phone Number [address] [address] * Comprehensive metabolic panel (05/01/2024 8:20 AM FUR DRY CLEANER) Pathologist [facility] Sodium 136 135 - 145 mmol/L Potassium, pl 4.1 3.3 - 4.9 mmol/L [facility] Chloride 102 97 - 110 mmol/L [facility] CO2 23 22 - 32 mmol/L [facility] Anion gap 11 2 - 15 mmol/L [facility] BUN 25 6 - 25 mg/dL [facility] Creatinine 0.69 0.60 - 1.10 mg/dL [facility] Glucose 122 70 - 199 mg/dL [facility] Comment: Interpretive Data Fasting glucose >/= 126 [...] Bilirubin, total 0.7 0.1 - 1.2 mg/dL [facility] Protein, pl 7.8 6.5 - 8.5 g/dL [facility] Albumin 4.4 3.5 - 5.0 g/dL [facility] Alk phos 97 40 - 130 Units/L [facility] ALT 29 7 - 45 Units/L [facility] AST 25 10 - 45 Units/L [facility] Blood 05/01/2024 8:20 AM FUR DRY CLEANER 05/01/2024 8:25 AM FUR DRY CLEANER [facility] LAB BLOOD ORDERABLES Final Resu lt VALERIE ALVAREZ [address] [facility] [place] [address] from Last 3 Months Insurance [facility] CHOICE PLUS [facility] HMO/PPO Address: [facility] [address] [place] [address] Care Teams Induction Furnace Operator Relationship Specialty Start Date End Date Unknown, Notinfile PCP - General 05/01/24
--- OUTSIDE RECORDS SUMMARY | 2024-07-24 08:43 | XMS_ITS | Clinical Summary ---
Author Organization [facility] Address [address] [facility] [place] [address] Care Team Providers Care Public Works Technician Name Role Phone Unavailable Primary Care Provider Unavailabl e Encounters Date Type Department Care Team Description 05/01/2024 External Device Data STL ABSTRACTION Provider, Abstract from Last 3 Months Social History Tobacco Use Types Packs/Day Years Used Date Smoking Tobacco: Never Assessed Comments Unknown Sex and Gender Information Value Date Recorded Sex Assigned at Not on file Legal Sex Female 10:41 AM 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
--- OUTSIDE RECORDS SUMMARY | 2024-07-24 08:43 | XMS_ITS | Clinical Summary ---
Author Organization [facility] Address [address] [place] [id number] Care Team Providers Care Janitor Name Role Phone Unknown, Notinfile Primary Care Provider Unavail able Allergies No known active allergies Medications cetirizine (ZyrTEC) 10 mg tablet Take 10 mg by mouth daily Active [id number] folate-algal 27 mg iron-1.13 mg-581.92 mg capsule [...] Department Care Team Description 05/01/2024 8:27 AM [facility] - 05/01/2024 11:25 AM [facility] Emergency [address] [address] Roldan Gonzalez MD Gastroenteritis (Primary Dx) Discharge [...] on file Legal Sex Female 8:11 PM GAS DISPATCHER Gender Identity Not on file Sexual Orientation Not on file 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 Not on file Not on armida e Obstetrics History Last Filed Vital Signs Vital Sign Reading Time Taken Comments Blood Pressure 134/89 05/01/2024 11:20 AM GAS DISPATCHER Pulse 68 05/01/2024 11:20 AM GAS DISPATCHER Temperature 36.6 C (97.8 F) 05/01/2024 8:05 AM GAS DISPATCHER Respiratory Rate 16 05/01/2024 11:20 AM GAS DISPATCHER Oxygen Saturation 100% 05/01/2024 11:20 AM GAS DISPATCHER Inhaled Oxygen Concentration - - Weight 81.6 kg (180 lb) 05/01/2024 8:05 AM GAS DISPATCHER Height 167.6 cm (5' 6 ) 05/01/2024 8:05 AM GAS DISPATCHER Body Mass Index 29.05 05/01/2024 8:05 AM GAS DISPATCHER Plan of Treatment Health Maintenance Due Date [...] PELVIS W CONTRAST ED 05/01/2024 9:52 AM GAS DISPATCHER EGFR STAT 05/01/2024 8:20 AM GAS DISPATCHER DIFFERENTIAL AUTO STAT 05/01/2024 8:2 0 AM GAS DISPATCHER LIPASE STAT 05/01/2024 8:20 AM GAS DISPATCHER COMPREHENSIVE METABOLIC PANEL STAT 05/01/2024 8:20 AM GAS DISPATCHER CBC WITH AUTO DIFFERENTIAL STAT 05/01/2024 8:20 AM GAS DISPATCHER from Last 3 Months Results * CT Abdomen Pelvis W Contrast (05/01/2024 9:52 AM GAS DISPATCHER) Anatomical Region Laterality Modality Body N/A Computed Tomogra phy 05/01/2024 10:0 1 AM GAS DISPATCHER Narrative 05/01/2024 10:12 AM GAS DISPATCHER EXAM DESCRIPTION: CT ABDOMEN PELVIS W CONTRAST [...] by Devin Cooper M.D. T: Report ID: [id number] Reading Location: [id number] Procedure Note Devin Cooper MD - 05/01/2024 [...] Devin Cooper M.D. MM T: Report ID: [id number] Reading Location: [place] [address] Roldan Gonzalez MD IMG CT PROCEDURES Final Result * eGFR (05/01/2024 8:20 AM GAS DISPATCHER) Pathologist [facility] eGFR >90 >=60 mL/min/1. 73 m2 Comment: [...] last reviewed 2021. Blood 05/01/2024 8:20 AM GAS DISPATCHER 05/01/2024 8:25 AM GAS DISPATCHER Roldan Gonzalez MD LAB BLOOD ORDERABLES Final Resu lt [facility] [address] [facility] Department [place] [address] * (ABNORMAL) Differential, auto (05/01/2024 8:20 AM GAS DISPATCHER) Neutrophil abs 7.5(H) 1.5 - 6.5 K/cumm [...] revised on 2017. Blood 05/01/2024 8:20 AM GAS DISPATCHER 05/01/2024 8:25 AM GAS DISPATCHER [facility] LAB BLOOD ORDERABLES Final Resu lt [address] [place] [address] * CBC with auto differential (05/01/2024 8:20 AM GAS DISPATCHER) [facility] WBC 8.5 3.8 - 9.9 K/cumm Hgb [...] blood specimen / Unknown 05/01/2024 8:20 AM GAS DISPATCHER 05/01/2024 8:25 AM GAS DISPATCHER [facility] LAB BLOOD ORDERABLES Final Resu lt [address] [address] * Lipase (05/01/2024 8:20 AM GAS DISPATCHER) [facility] Lipase 14 10 - 99 Units/L Blood Venous blood specimen / Unknown 05/01/2024 8:20 AM GAS DISPATCHER 05/01/2024 8:25 AM GAS DISPATCHER [facility] LAB BLOOD ORDERABLES Final Resu lt [address] [place] [address] * Comprehensive metabolic panel (05/01/2024 8:20 AM GAS DISPATCHER) Sodium 136 135 - 145 mmol/L Potassium, [...] 2022. Calcium 9.4 8.5 - 10.3 mg/dL [facility] Bilirubin, total 0.7 0.1 - 1.2 mg/dL [facility] Protein, pl 7.8 6.5 - 8.5 g/dL [facility] Albumin 4.4 3.5 - 5.0 g/dL [facility] Alk phos 97 40 - 130 Units/L [facility] ALT 29 7 - 45 Units/L [facility] AST 25 10 - 45 Units/L [facility] Blood 05/01/2024 8:20 AM GAS DISPATCHER 05/01/2024 8:25 AM GAS DISPATCHER [facility] LAB BLOOD ORDERABLES Final Resu lt [facility] [address] [facility] Department [place] [address] from Last 3 Months Insurance [facility] CHOICE PLUS Care Teams Janitor Relationship Specialty Start Date End Date Unknown, Notinfile PCP - General 05/01/24
--- OUTSIDE RECORDS SUMMARY | 2024-07-24 08:43 | XMS_ITS | Clinical Summary ---
Author Organization [facility] Address [address] [place] [id number] Care Team Providers Care City Secretary Name Role Phone Unavailable Primary Care Provider [...] Td Vaccines ( 1 - Tdap) 01/20/1984 Cervical Cancer Screening Pa p with HPV Testing (Age 30 to 64) Every 5 Years 1995 Cervical Cancer Screening with HPV 1995 Mammogram Screening 2005 Pneumococcal Vaccine: 50+ Ye ars (1 of 1 - PCV) 2015 Zoster Vaccines (1 of 2) 2015 COVID-19 Vaccine (2023-2 5 season) 2023 Meningococcal B Vaccine Aged Out No l onger eligible based on patient's age to complete this topic Meningococcal Vaccine Aged Out No floresita deedee eligible based on patient's age to complete this topic RSV Immunizations Under 20 Months Aged Out No longer eligible based on patient's age to complete this topic
== END 2024-07-24 08:27 | disposition home or self-care (01) ==
PROVIDERS: PCP Family Medicine; Visit Provider Nurse Practitioner Family
DX: S76.012A Strain of muscle, fascia and tendon of left hip, initial encounter (principal); X58.XXXA Exposure to other specified factors, initial encounter; K63.89 Other specified diseases of intestine; K76.89 Other specified diseases of liver; M79.3 Panniculitis, unspecified; R10.9 Unspecified abdominal pain
CPT/HCPCS: 73721; 74178; Q9967